=== PATIENT | female | born 1990 | race African-American/Black ===

== ENCOUNTER 2018-03-08 18:42 | Emergency (ER) | payer BC ==
[2018-03-08 20:26] VITALS: BP 136/83
--- NOTE | 2018-03-08 21:33 | EDM.PDOC ---
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 Stated Complaint: PT 8WKS AND BLEEDING Time Seen by Provider: 03/08/18 21:30 Source of Information: Reports: Patient History Limitations: Reports: No Limitations - History of Present Illness INITIAL COMMENTS - FREE TEXT/NARRATIVE: HISTORY AND PHYSICAL: []27-year-old female presenting with mild vaginal bleeding today She has used about 4 mini pads History of Present Illness: []She has had a miscarriage in the past Her guess is that she is about 8 weeks SHe is experiencing some cramping that comes and goes pain level up to 5/10 She does see Yareli Rosas nurse cannoneer Review of Systems: As per history of present illness and below otherwise all systems reviewed and negative. Past medical history: As per history of present illness and as reviewed below otherwise noncontributory. Surgical history: As per history of present illness and as reviewed below otherwise noncontributory. Social history: No reported history of drug or alcohol abuse. Family history: As per history of present illness and as reviewed below otherwise noncontributory. Physical exam: Alert and oriented female answering questions appropriately in full sentences without any shortness of breath HEENT: Atraumatic, normocehpalic, pupils reactive, negative for conjunctival pallor or scleral icterus, mucous membranes moist, throat clear, neck supple, nontender, trachea midline. Lungs: Clear to auscultation, breath sounds equal bilaterally, chest non tender. Heart: S1S2, regular, negative for clicks, rubs, or JVD. Abdomen: Soft, nondistended, nontender. Negative for masses or hepatossplenmegaly. Negative for costovertebral tenderness. Pelvis: Deferred Genitourinary: Deferred. Rectal: Deferred Extremities: Atraumatic, negative for cords or calf pain. Neurovascular unremarkable. Neuro: Awake, alert, oriented. Cranial nerves II through XII unremarkable. Cerebellum unremarkable. Motor and sensory unremarkable throughout. Exam nonfocal. Discussed results with patient Diagnostics: []Beta hCG UA Therapeutics: [] Impression: []Bleeding and first trimester Plan: []Contact Yareli Rosas tomorrow morning SHe will need to repeat the lab work that was done tonight Return to emergency room Definitive disposition and diagnosis as appropriate pending reevaluation and review of above. Onset: Today, Sudden Duration: Hour(s): Location: Reports: Pelvis Severity: Mild Improves with: Reports: None Worsens with: Reports: None L abd Pain Score (Numeric/FACES): 6 - Related Data Allergies Allergy/AdvReac Type Severity Reaction Status Date / Time No Known Allergies Allergy Verified 03/08/18 20:26 Home Meds: Home Meds . 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: Musculoskeletal History: Reports: None Neurological History: Reports: None Psychiatric History: Reports: None Endocrine/Metabolic History: Reports: Obesity/BMI 30+ Hematologic History: Reports: None Immunologic History: Reports: None Oncologic (Cancer) History: Reports: None Dermatologic History: Reports: None - Infectious Disease History Infectious Disease History: Reports: Herpes Other Infectious Disease History: Herpes - Past Surgical History Female Surgical History: Reports: Section Endocrine Surgical History: Reports: None Dermatological Surgical History: Reports: None Social & Family History - Family History HEENT: Reports: None - Tobacco Use Smoking Status *Q: Never Smoker Second Hand Smoke Exposure: No - Caffeine Use Caffeine Use: Reports: None - Recreational Drug Use Recreational Drug Use: No ED ROS GENERAL - Review of Systems Review Of Systems: ROS reveals no pertinent complaints other than HPI. ED EXAM - Physical Exam Exam: See Below (see dictation) Course - Vital Signs Last Recorded V/S: Last Vital Signs Temp 37.1 C 03/08/18 20:23 Pulse 66 03/08/18 20:23 Resp 12 03/08/18 20:23 BP 136/83 03/08/18 20:23 Pulse Ox 100 03/08/18 20:23 - Orders/Labs/Meds Orders: Active Orders 24 hr Category Date Time Status HCG QUANTITATIVE,SERUM [CHEM] Stat Lab 03/08/18 21:45 Received UA W/MICROSCOPIC [URIN] Stat Lab 03/08/18 21:49 Received Departure - Departure Time of Disposition: 22:05 Disposition: Home, Self-Care 01 Condition: Good Clinical Impression: Vaginal bleeding affecting early - Discharge Information Referrals: PCP,None [Primary Care Provider] - Forms: ED Department Discharge Additional Instructions: The following information is given to patients seen in the emergency department who are being discharged to home. This information is to outline your options for follow-up care. We provide all patients seen in our emergency department with a follow-up referral. The need for follow-up, as well as the timing and circumstances, are variable depending upon the specifics of your emergency department visit. If you don't have a primary care physician on staff, we will provide you with a referral. We always advise you to contact your personal physician following an emergency department visit to inform them of the circumstance of the visit and for follow-up with them and/or the need for any referrals to a consulting specialist. The emergency department will also refer you to a specialist when appropriate. This referral assures that you have the opportunity for followup care with a specialist. All of these measure are taken in an effort to provide you with optimal care, which includes your followup. Under all circumstances we always encourage you to contact your private physician who remains a resource for coordinating your care. When calling for followup care, please make the office aware that this follow-up is from your recent emergency room visit. If for any reason you are refused follow-up, please contact the [facility] emergency department at and asked to speak to the emergency department charge nurse. SHe will need to see your provider Yareli Rosas tomorrow for repeat laboratory values Return to the emergency room as discussed and directed - My Orders Last 24 Hours: My Active Orders 03/08/18 21:45 HCG QUANTITATIVE,SERUM [CHEM] Stat 03/08/18 21:49 UA W/MICROSCOPIC [URIN] Stat - Assessment/Plan Last 24 Hours: My Active Orders 03/08/18 21:45 HCG QUANTITATIVE,SERUM [CHEM] Stat 03/08/18 21:49 UA W/MICROSCOPIC [URIN] Stat
== END 2018-03-08 22:41 | disposition home or self-care (01) ==
LOC: MW.ED 18:42
DX: O20.9 Hemorrhage in early pregnancy, unspecified (principal); Z3A.08 8 weeks gestation of pregnancy
CPT/HCPCS: 36415; 81001; 84702; 99284

== ENCOUNTER 2018-03-09 21:28 | Emergency (ER) | payer BC ==
[2018-03-09] MEDS ORDERED: Morphine 4 MG/ML Syringe IVPUSH ONE (21:36)
[2018-03-09] MEDS ORDERED: Sodium Chloride 0.9% 10 ML Syringe FLUSH PRN (21:36)
[2018-03-09] MEDS ORDERED: Ondansetron 4 MG/2 ML SDV IVPUSH ONE (21:36)
[2018-03-09] MEDS ORDERED: Sodium Chloride 0.9% 2.5 ML Syringe FLUSH PRN (21:36)
--- NOTE | 2018-03-09 21:36 | EDM.PDOC ---
ED HPI GENERAL MEDICAL PROBLEM - General Source of Information: Reports: Patient History Limitations: Reports: No Limitations - History of Present Illness Onset: Gradual Duration: Day(s): Location: Reports: Abdomen Quality: Reports: Stabbing Severity: Severe Improves with: Reports: None Worsens with: Reports: None lower abdominal/pelvic Pain Score (Numeric/FACES): 10 - General Stated Complaint: PT HAS STOMACH PAINS AND 8 WKS Time Seen by Provider: 03/09/18 21:32 - History of Present Illness INITIAL COMMENTS - FREE TEXT/NARRATIVE: HISTORY AND PHYSICAL: []27-year-old female presenting with increased abdominal cramping and vaginal bleeding History of Present Illness: []She thinks that she is about 8 weeks Patient was seen in the emergency room last night Patient states the pain started about 3 hours ago She was unable to get into the clinic when she called today as instructed Pain is very low in the pelvis Review of Systems: As per history of present illness and below otherwise all systems reviewed and negative. Past medical history: As per history of present illness and as reviewed below otherwise noncontributory. Surgical history: As per history of present illness and as reviewed below otherwise noncontributory. Social history: No reported history of drug or alcohol abuse. Family history: As per history of present illness and as reviewed below otherwise noncontributory. Physical exam: HEENT: Atraumatic, normocehpalic, pupils reactive, negative for conjunctival pallor or scleral icterus, mucous membranes moist, throat clear, neck supple, nontender, trachea midline. Lungs: Clear to auscultation, breath sounds equal bilaterally, chest non tender. Heart: S1S2, regular, negative for clicks, rubs, or JVD. Abdomen: Soft, nondistended, nontender. Negative for masses or hepatossplenmegaly. Negative for costovertebral tenderness. Pelvis: Stable nontender. Genitourinary: Deferred. Rectal: Deferred Extremities: Atraumatic, negative for cords or calf pain. Neurovascular unremarkable. Neuro: Awake, alert, oriented. Cranial nerves II through XII unremarkable. Cerebellum unremarkable. Motor and sensory unremarkable throughout. Exam nonfocal. Diagnostics: []First trimester initial ultrasound Beta hCG Therapeutics: [] Impression: [] Plan: [] Definitive disposition and diagnosis as appropriate pending reevaluation and review of above. (Anai Cochran) Patient's quantitative beta is noted to have dropped again from yesterday pelvic ultrasound demonstrates a well-circumscribed anechoic structure seen in the vaginal fornix by history and other evidence this does appear to most likely represent a gestational sac there was no definite pole or yolk sac identified the endometrial complex is poorly defined and heterogeneous I discussed these findings with patient and the likelihood of this representing an incomplete and the need for close follow-up patient understands and agrees she was given option for inpatient admission and WASTEWATER ENGINEER consultation and she declines she has seen Yareli Valdez in the past for pregnancies she is to follow-up with WASTEWATER ENGINEER E and call in a.m. return as needed as discussed for worsening bleeding or pain as discussed. Impression is #1 first trimester vaginal bleeding #2 inevitable (Braeden Blount) - Related Data Allergies Allergy/AdvReac Type Severity Reaction Status Date / Time No Known Allergies Allergy Verified 03/09/18 21:32 Home Meds: Home Meds . 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: Musculoskeletal History: Reports: None Neurological History: Reports: None Psychiatric History: Reports: None Endocrine/Metabolic History: Reports: Obesity/BMI 30+ Hematologic History: Reports: None Immunologic History: Reports: None Oncologic (Cancer) History: Reports: None Dermatologic History: Reports: None - Infectious Disease History Infectious Disease History: Reports: Herpes Other Infectious Disease History: Herpes - Past Surgical History Female Surgical History: Reports: Section Endocrine Surgical History: Reports: None Dermatological Surgical History: Reports: None Social & Family History - Family History HEENT: Reports: None - Tobacco Use Smoking Status *Q: Never Smoker Second Hand Smoke Exposure: No - Caffeine Use Caffeine Use: Reports: None - Recreational Drug Use Recreational Drug Use: No ED ROS GENERAL - Review of Systems Review Of Systems: ROS reveals no pertinent complaints other than HPI. ED EXAM - Physical Exam Exam: See Below (See dictation) - Vital Signs Last Recorded V/S: Last Vital Signs Temp 35.9 C 03/09/18 21:32 Pulse 67 03/09/18 21:32 Resp 22 H 03/09/18 21:32 BP 133/91 H 03/09/18 21:32 Pulse Ox 100 03/09/18 21:32 - Orders/Labs/Meds Orders: Active Orders 24 hr Category Date Time Status OB 1st Tri Sgl 1st Gest [US] Stat Exams 03/09/18 21:31 Taken CULTURE URINE [RM] Stat Lab 03/09/18 21:39 Ordered UA W/MICROSCOPIC [URIN] Stat Lab 03/09/18 21:39 Ordered Sodium Chloride 0.9% [Saline Flush] Med 03/09/18 21:36 Active 10 ml FLUSH ASDIRECTED PRN Sodium Chloride 0.9% [Saline Flush] Med 03/09/18 21:36 Active 2.5 ml FLUSH ASDIRECTED PRN Saline Lock Insert [OM.PC] Stat Oth 03/09/18 21:36 Ordered Medication Orders Sodium Chloride (Saline Flush) 10 ml FLUSH ASDIRECTED PRN PRN Reason: Keep Vein Open Last Admin: 03/09/18 22:23 Dose: 10 ml Sodium Chloride (Saline Flush) 2.5 ml FLUSH ASDIRECTED PRN PRN Reason: Keep Vein Open Last Admin: 03/09/18 22:23 Dose: 2.5 ml Labs: Laboratory Tests 03/09/18 03/09/18 03/09/18 Range/Units 20:21 22:21 22:25 WBC 8.56 (4.0-11.0) K/uL RBC 4.77 (4.30-5.90) M/uL Hgb 13.8 (12.0-16.0) g/dL Hct 40.3 (36.0-46.0) % MCV 84.5 (80.0-98.0) fL MCH 28.9 (27.0-32.0) pg MCHC 34.2 (31.0-37.0) g/dL RDW Std Deviation 45.1 (28.0-62.0) fl RDW Coeff of Rhona 15 (11.0-15.0) % Plt Count 229 (150-400) K/uL MPV 10.50 (7.40-12.00) fL Neut % (Auto) 66.6 (48.0-80.0) % Lymph % (Auto) 25.4 (16.0-40.0) % [place] % (Auto) 6.0 (0.0-15.0) % Eos % (Auto) 1.1 (0.0-7.0) % Baso % (Auto) 0.9 (0.0-1.5) % Neut # (Auto) 5.7 (1.4-5.7) K/uL Lymph # (Auto) 2.2 (0.6-2.4) K/uL [place] # (Auto) 0.5 (0.0-0.8) K/uL Eos # (Auto) 0.1 (0.0-0.7) K/uL Baso # (Auto) 0.1 (0.0-0.1) K/uL Nucleated RBC % 0.0 /100WBC Nucleated RBCs # 0 K/uL Sodium 140 (136-145) mmol/L Potassium 3.3 L (3.5-5.1) mmol/L Chloride 103 (98-107) mmol/L Carbon Dioxide 25.4 (21.0-32.0) mmol/L BUN 14 (7.0-18.0) mg/dL Creatinine 0.7 (0.6-1.0) mg/dL Est Cr Clr Drug Dosing 90.29 mL/min Estimated GFR (MDRD) > 60.0 ml/min Glucose 124 H (74-106) mg/dL Calcium 9.1 (8.5-10.1) mg/dL Total Bilirubin 0.2 (0.2-1.0) mg/dL AST 17 (15-37) IU/L ALT 29 (14-63) IU/L Alkaline Phosphatase 71 (46-116) U/L Total Protein 7.8 (6.4-8.2) g/dL Albumin 3.6 (3.4-5.0) g/dL Globulin 4.2 H (2.0-3.5) g/dL Albumin/Globulin Ratio 0.9 L (1.3-2.8) HCG, Quant 7079.0 mIU/mL Meds: Medications Generic Name Dose Route Start Last Admin Trade Name Freq PRN Reason Stop Dose Admin Sodium Chloride 10 ml 03/09/18 21:36 03/09/18 22:23 Saline Flush FLUSH 10 ml ASDIRECTED PRN Administration Keep Vein Open Sodium Chloride 2.5 ml 03/09/18 21:36 03/09/18 22:23 Saline Flush FLUSH 2.5 ml ASDIRECTED PRN Administration Keep Vein Open Discontinued Medications Generic Name Dose Route Start Last Admin Trade Name Freq PRN Reason Stop Dose Admin Morphine Sulfate 2 mg 03/09/18 21:36 03/09/18 22:22 Morphine IVPUSH 03/09/18 21:37 2 mg ONETIME ONE Administration Ondansetron HCl 4 mg 03/09/18 21:36 03/09/18 22:22 Zofran IVPUSH 03/09/18 21:37 4 mg ONETIME ONE Administration Departure - Departure Time of Disposition: 21:58 Condition: Good - Departure Disposition: Still A Patient 30 Clinical Impression: Threatened , Vaginal bleeding affecting early - Discharge Information Instructions: Threatened Miscarriage
[2018-03-09 22:56] LABS: CHLORIDE,CL 103 mmol/L (98-107); SODIUM,NA 140 mmol/L (136-145)
[2018-03-10 03:32] VITALS: BP 91/69
--- NOTE | 2018-03-10 13:16 | US ---
EXAM DATE: 03/09/18 PATIENT'S AGE: 27 Patient: SPRING DOWELL Facility: [place], [place] Site . Site : 1990 Study: US OB Pelvis [id number]/[id number] 10:22:02 PM Ordering Physician: Doctor Ernandez Final Report: INDICATION: Vaginal bleeding TECHNIQUE: Ultrasound OB pelvis transabdominal and transvaginal. Real time prajapati scale imaging of the pelvis was performed. COMPARISON: None FINDINGS: Gestational Sac: There is a well-circumscribed anechoic structure seen in the vaginal fornix which may represent the gestational sac. Fetus: No definite pole or yolk sac identified. The endometrial complex is poorly defined and heterogeneous in appearance. Pelvis: The visualized cervix is closed. The visualized myometrium appears normal. The ovaries are of normal size. No significant ascites noted. IMPRESSION: 1. There is a well-circumscribed cystic structure seen in the vaginal fornix which may represent the gestational sac or blighted ovum with impending . 2. Follow-up beta HCG and ultrasound is recommended to exclude any retained products of conception. Dictated by Vance Leon MD @ 03/09/2018 10:30:02 PM Dictated by: Vance Leon MD @ 03/09/2018 22:30:20 (Electronic Signature) Report Signed by Proxy. LESTER
== END 2018-03-10 01:20 | disposition home or self-care (01) ==
LOC: MW.ED 21:28
DX: O20.0 Threatened abortion (principal); Z3A.08 8 weeks gestation of pregnancy
CPT/HCPCS: 36415; 76801; 80053; 84702; 85025; 96374; 96375; 99284; J2270; J2405

== ENCOUNTER 2018-07-21 20:01 | Emergency (ER) | payer BC ==
--- NOTE | 2018-07-21 20:19 | EDM.PDOC ---
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 She states she was seen yesterday at [facility] and was told that this could be normal in . She states the bleeding is heavier today and decided to come into the emergency room. He denies any fever, chills, chest pain , shortness of breath or cough. Denies any nausea, vomiting, diarrhea or constipation. Review of systems: As per history of present illness and below otherwise all systems reviewed and negative. Past medical history: As per history of present illness and as reviewed below otherwise noncontributory. Surgical history: As per history of present illness and as reviewed below otherwise noncontributory. Social history: No reported history of drug or alcohol abuse. Family history: As per history of present illness and as reviewed below otherwise noncontributory. Physical exam: General: HEENT: Atraumatic, normocephalic, pupils equal and reactive bilaterally, negative for conjunctival pallor or scleral icterus, mucous membranes moist, throat clear, neck supple, nontender, trachea midline. No drooling or trismus noted. No meningeal signs Lungs: Clear to auscultation, breath sounds equal bilaterally, chest nontender. Heart: S1S2, regular rate and rhythm without overt murmur Abdomen: Soft, nondistended, nontender. Negative for masses or hepatosplenomegaly. Negative for costovertebral tenderness. Pelvis: Stable nontender. Genitourinary: Deferred. Rectal: Deferred. Skin: Intact, warm, dry. No lesions or rashes noted. Extremities: Atraumatic, negative for cords or calf pain. Neurovascular unremarkable. Neuro: Awake, alert, oriented. Cranial nerves II through XII unremarkable. Cerebellum unremarkable. Motor and sensory unremarkable throughout. Exam nonfocal. Notes: Previous records show she is A positive. Unable to view any previous confirmed IUP. She states that she have lab work done at [facility], this information is unavailable to me at this time. He is agreeable to ultrasound and repeat labs. Diagnostics: CBC, CMP, UA, HCGU Therapeutics: Tylenol Prescription: None Impression: Threatened Miscarriage Plan: 1. Pelvic Rest (No sex, tampons, etc...) 2. Tylenol as needed for pain management. 3. Please have your quantitative hCG lab repeated on 07/23/2018 through your OB/ CLAIM BENEFIT SPECIALIST. 4. Call [facility] tomorrow to inform them of your ER visit and you need to make a follow up appointment. Return to the ED as needed as discussed. Definitive disposition and diagnosis as appropriate pending reevaluation and review of above. (Nghia Burton) This is Dr. Hopson dictating an addendum note as I have assumed care of this case at 10 PM. There is some delays in getting the patient's ultrasound but all of her labs and ultrasound have been reviewed by me and these testing results have also been discussed with Dr. Thomas the patient's ultrasound does delineate an intrauterine but there is no cardiac activity and is sitting in the lower uterine segment and this is suspicious for inevitable miscarriage. I've advised the patient on strict pelvic rest and need to contact the clinic tomorrow morning for follow-up with repeat quantitative hCG and ultrasound. I performed a pelvic exam and there is a small amount of blood in the vaginal vault and a small clot at the os which I removed easily and there is no tissue. The os is nulliparous and closed. Please note that patient is telling nursing that she only went over to [facility] yesterday because she could not get in to our clinic and she does have an appointment next week with Yareli Rosas. I told her that she can call our clinic tomorrow and see if she can be seen sooner because she does need to be seen sooner than 1 week otherwise [facility] is aware of her and can see her in the next 1-2 days. She states understanding. Impression: Threatened miscarriage/ demise versus early IUP (Kaye Hopson) - Related Data Allergies Allergy/AdvReac Type Severity Reaction Status Date / Time No Known Allergies Allergy Verified 07/21/18 20:24 Home Meds: Home Meds . 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: Musculoskeletal History: Reports: None Neurological History: Reports: None Psychiatric History: Reports: None Endocrine/Metabolic History: Reports: Obesity/BMI 30+ Hematologic History: Reports: None Immunologic History: Reports: None Oncologic (Cancer) History: Reports: None Dermatologic History: Reports: None - Infectious Disease History Infectious Disease History: Reports: Herpes Other Infectious Disease History: Herpes - Past Surgical History Female Surgical History: Reports: Section Endocrine Surgical History: Reports: None Dermatological Surgical History: Reports: None <Nghia Burton E - Last Filed: 07/21/18 21:38> Social & Family History - Family History Family Medical History: Noncontributory HEENT: Reports: None - Caffeine Use Caffeine Use: Reports: None <Nghia Burton E - Last Filed: 07/21/18 21:38> ED ROS GENERAL - Review of Systems Review Of Systems: ROS reveals no pertinent complaints other than HPI. <Nghia Burton E - Last Filed: 07/21/18 21:38> - Review of Systems Review Of Systems: ROS reveals no pertinent complaints other than HPI. <Kaye Hopson - Last Filed: 07/21/18 23:23> ED EXAM - Physical Exam Exam: See Below (See dictation) <Nghia Burton E - Last Filed: 07/21/18 21:38> - Vital Signs Last Recorded V/S: Last Vital Signs Temp 36.6 C 07/21/18 20:22 Pulse 77 07/21/18 20:22 Resp 16 07/21/18 20:22 BP 136/76 07/21/18 20:22 Pulse Ox 99 07/21/18 20:22 - Orders/Labs/Meds Orders: Active Orders 24 hr Category Date Time Status OB Transvaginal [US] Stat Exams 07/21/18 20:33 Taken Labs: Laboratory Tests 07/21/18 07/21/18 07/21/18 Range/Units 20:30 20:30 20:30 WBC 7.34 (4.0-11.0) K/uL RBC 4.57 (4.30-5.90) M/uL Hgb 12.9 (12.0-16.0) g/dL Hct 38.7 (36.0-46.0) % MCV 84.7 (80.0-98.0) fL MCH 28.2 (27.0-32.0) pg MCHC 33.3 (31.0-37.0) g/dL RDW Std Deviation 44.9 (28.0-62.0) fl RDW Coeff of Rhona 15 (11.0-15.0) % Plt Count 236 (150-400) K/uL MPV 9.80 (7.40-12.00) fL Neut % (Auto) 49.5 (48.0-80.0) % Lymph % (Auto) 40.1 H (16.0-40.0) % Maries % (Auto) 7.2 (0.0-15.0) % Eos % (Auto) 2.2 (0.0-7.0) % Baso % (Auto) 1.0 (0.0-1.5) % Neut # (Auto) 3.6 (1.4-5.7) K/uL Lymph # (Auto) 2.9 H (0.6-2.4) K/uL Maries # (Auto) 0.5 (0.0-0.8) K/uL Eos # (Auto) 0.2 (0.0-0.7) K/uL Baso # (Auto) 0.1 (0.0-0.1) K/uL Nucleated RBC % 0.0 /100WBC Nucleated RBCs # 0 K/uL Sodium 137 (136-145) mmol/L Potassium 4.2 (3.5-5.1) mmol/L Chloride 103 (98-107) mmol/L Carbon Dioxide 27.6 (21.0-32.0) mmol/L BUN 10 (7.0-18.0) mg/dL Creatinine 0.7 (0.6-1.0) mg/dL Est Cr Clr Drug Dosing 89.48 mL/min Estimated GFR (MDRD) > 60.0 ml/min Glucose 127 H (74-106) mg/dL Calcium 9.2 (8.5-10.1) mg/dL Total Bilirubin 0.2 (0.2-1.0) mg/dL AST 11 L (15-37) IU/L ALT 25 (14-63) IU/L Alkaline Phosphatase 64 (46-116) U/L Total Protein 7.6 (6.4-8.2) g/dL Albumin 3.4 (3.4-5.0) g/dL Globulin 4.2 H (2.0-3.5) g/dL Albumin/Globulin Ratio 0.8 L (1.3-2.8) HCG, Quant 6012.0 mIU/mL Urine Color Urine Appearance Urine pH (5.0-8.0) Ur Specific [place] (1.001-1.035) Urine Protein (NEGATIVE) mg/dL Urine Glucose (UA) (NEGATIVE) mg/dL Urine Ketones (NEGATIVE) mg/dL Urine Occult Blood (NEGATIVE) Urine Nitrite (NEGATIVE) Urine Bilirubin (NEGATIVE) Urine Urobilinogen (<2.0) EU/dL Ur Leukocyte Esterase (NEGATIVE) Urine RBC (0-2/HPF) Urine WBC (0-5/HPF) Ur Epithelial Cells (NONE-FEW) Urine Bacteria (NEGATIVE) 07/21/18 Range/Units 20:55 WBC (4.0-11.0) K/uL RBC (4.30-5.90) M/uL Hgb (12.0-16.0) g/dL Hct (36.0-46.0) % MCV (80.0-98.0) fL MCH (27.0-32.0) pg MCHC (31.0-37.0) g/dL RDW Std Deviation (28.0-62.0) fl RDW Coeff of Rhona (11.0-15.0) % Plt Count (150-400) K/uL MPV (7.40-12.00) fL Neut % (Auto) (48.0-80.0) % Lymph % (Auto) (16.0-40.0) % Maries % (Auto) (0.0-15.0) % Eos % (Auto) (0.0-7.0) % Baso % (Auto) (0.0-1.5) % Neut # (Auto) (1.4-5.7) K/uL Lymph # (Auto) (0.6-2.4) K/uL Maries # (Auto) (0.0-0.8) K/uL Eos # (Auto) (0.0-0.7) K/uL Baso # (Auto) (0.0-0.1) K/uL Nucleated RBC % /100WBC Nucleated RBCs # K/uL Sodium (136-145) mmol/L Potassium (3.5-5.1) mmol/L Chloride (98-107) mmol/L Carbon Dioxide (21.0-32.0) mmol/L BUN (7.0-18.0) mg/dL Creatinine (0.6-1.0) mg/dL Est Cr Clr Drug Dosing mL/min Estimated GFR (MDRD) ml/min Glucose (74-106) mg/dL Calcium (8.5-10.1) mg/dL Total Bilirubin (0.2-1.0) mg/dL AST (15-37) IU/L ALT (14-63) IU/L Alkaline Phosphatase (46-116) U/L Total Protein (6.4-8.2) g/dL Albumin (3.4-5.0) g/dL Globulin (2.0-3.5) g/dL Albumin/Globulin Ratio (1.3-2.8) HCG, Quant mIU/mL Urine Color YELLOW Urine Appearance SLT CLOUDY Urine pH 6.0 (5.0-8.0) Ur Specific [place] 1.015 (1.001-1.035) Urine Protein NEGATIVE (NEGATIVE) mg/dL Urine Glucose (UA) NEGATIVE (NEGATIVE) mg/dL Urine Ketones NEGATIVE (NEGATIVE) mg/dL Urine Occult Blood LARGE H (NEGATIVE) Urine Nitrite NEGATIVE (NEGATIVE) Urine Bilirubin NEGATIVE (NEGATIVE) Urine Urobilinogen 0.2 (<2.0) EU/dL Ur Leukocyte Esterase NEGATIVE (NEGATIVE) Urine RBC 90-100 (0-2/HPF) Urine WBC 0-2 (0-5/HPF) Ur Epithelial Cells RARE (NONE-FEW) Urine Bacteria RARE (NEGATIVE) Meds: Medications Discontinued Medications Generic Name Dose Route Start Last Admin Trade Name Freq PRN Reason Stop Dose Admin Acetaminophen 1,000 mg 07/21/18 21:12 07/21/18 21:31 Tylenol Extra Strength PO 07/21/18 21:13 1,000 mg ONETIME ONE Administration Departure <Nghia Burton - Last Filed: 07/21/18 21:38> - Departure Time of Disposition: 23:23 Condition: Good <Kaye Hopson - Last Filed: 07/21/18 23:23> - Departure Disposition: Home, Self-Care 01 Clinical Impression: Threatened - Discharge Information Instructions: Threatened Miscarriage, [id number] Referrals: PCP,None [Primary Care Provider] - Forms: ED Department Discharge Additional Instructions: The following information is given to patients seen in the emergency department who are being discharged to home. This information is to outline your options for follow-up care. We provide all patients seen in our emergency department with a follow-up referral. The need for follow-up, as well as the timing and circumstances, are variable depending upon the specifics of your emergency department visit. If you don't have a primary care physician on staff, we will provide you with a referral. We always advise you to contact your personal physician following an emergency department visit to inform them of the circumstance of the visit and for follow-up with them and/or the need for any referrals to a consulting specialist. The emergency department will also refer you to a specialist when appropriate. This referral assures that you have the opportunity for follow-up care with a specialist. All of these measure are taken in an effort to provide you with optimal care, which includes your follow-up. Under all circumstances we always encourage you to contact your private physician who remains a resource for coordinating your care. When calling for follow-up care, please make the office aware that this follow-up is from your recent emergency room visit. If for any reason you are refused follow-up, please contact the [facility] Emergency Department at and asked to speak to the emergency department charge nurse. [facility] [address] [place] [address] [facility] Primary care-Women's [facility] [address] [facility] [place] [address] [place] [address] 1. Pelvic Rest (No sex, tampons, etc...) until cleared by your OBGYN 2. Tylenol as needed for pain management. 3 Call [facility] tomorrow to inform them of your ER visit and you need to make a follow up appointment in the next 1-2 days. He may also try to call our clinic if you choose to follow-up there and see if they can move up your appointment from next week. Advised that you should be seen within the next 1-2 days because of the findings on the ultrasound and hormone level.. Return to the ED as needed as discussed.
[2018-07-21 20:59] LABS: CHLORIDE,CL 103 mmol/L (98-107); SODIUM,NA 137 mmol/L (136-145)
[2018-07-21] MEDS ORDERED: Acetaminophen 500 MG Tab PO ONE (21:12)
[2018-07-21 23:38] VITALS: BP 110/50
--- NOTE | 2018-07-22 10:44 | US ---
EXAM DATE: 07/21/18 PATIENT'S AGE: 28 Patient: SPRING DOWELL Facility: [place], [place] Site . Site : 1990 Study: US OB Pelvis [id number]/11/2018 10:39:03 PM Ordering Physician: Doctor Ernandez Final Report: HISTORY: Spotting and cramping for 2 days. COMPARISON: None available of this gestation. TECHNIQUE: Transvaginal ultrasound examination of the early was performed. Initial examination was performed with transabdominal technique. FINDINGS: A single intrauterine gestational sac is seen with a pole. The gestational sac is flattened and irregular, and located low in the uterine cavity. The crown-rump length measurement of 0.4 cm gives an estimated gestational age of 6 weeks 1 day with an estimated date of delivery of 03/17/2019. This correlates well with the LMP of 05/30/2018 which gives a clinical age of 7 weeks 3 days. There is no cardiac activity at this time. The differential diagnosis includes demise with impending spontaneous versus early intrauterine gestation. Follow-up ultrasound is suggested. There is a tiny amount of free fluid in the cul-de-sac, nonspecific. There is a complex cyst in the left ovary with thick noyola, measuring up to 1.7 centimeters in diameter, possibly a corpus luteum cyst of . The right ovary cannot be identified. IMPRESSION: SINGLE INTRAUTERINE GESTATIONAL SAC IDENTIFIED LOW IN THE UTERINE CAVITY, WITH IRREGULAR SHAPE. A POLE IS IDENTIFIED WITHIN THE GESTATIONAL SAC, BUT NO CARDIAC ACTIVITY CAN BE IDENTIFIED. ESTIMATED GESTATIONAL AGE BY ULTRASOUND IS 6 WEEKS 1 DAY DIFFERENTIAL DIAGNOSIS INCLUDES DEMISE WITH IMPENDING SPONTANEOUS VERSUS EARLY INTRAUTERINE GESTATION. RECOMMEND FOLLOW-UP ULTRASOUND. Dictated by David Lemus MD @ Jul 21 2018 10:49PM (Electronic Signature) Report Signed by Proxy. LESTER
== END 2018-07-21 23:40 | disposition home or self-care (01) ==
LOC: MW.ED 20:01
DX: O20.0 Threatened abortion (principal); Z3A.01 Less than 8 weeks gestation of pregnancy
CPT/HCPCS: 36415; 76817; 80053; 81001; 84702; 85025; 99285; A9270

== ENCOUNTER 2019-01-12 09:18 | Emergency (ER) | payer BC ==
[2019-01-12] MEDS ORDERED: Sodium Chloride 0.9% 10 ML Syringe FLUSH PRN (09:40)
[2019-01-12] MEDS ORDERED: Sodium Chloride 0.9% 1,000 ML IV ONE ×2 (09:40→13:00)
[2019-01-12] MEDS ORDERED: Sodium Chloride 0.9% 2.5 ML Syringe FLUSH PRN (09:40)
[2019-01-12] MEDS ORDERED: Ondansetron 4 MG/2 ML SDV IVPUSH ONE (09:40)
[2019-01-12] MEDS ORDERED: Morphine 2 MG/ML Syringe IVPUSH ONE ×2 (09:40→12:02)
--- NOTE | 2019-01-12 09:43 | EDM.PDOC ---
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 Gonzalez and says that last night she started having some cramping and spotting which worsened today. She says she is passing blood and she's not sure if she passed any tissue. The patient had a pelvic ultrasound done here as an outpatient on January 01 which showed an intrauterine gestational sac dating the at 7 weeks one day but there was no cardiac activity. She has had 2 serum quantitative hCGs on December 30 and for every the first being [id number] and the second being 40412 showing a fall. She tried to get into the clinic and was unable so came here for care. She is feeling nauseated but has not had any vomiting. She says the discomfort is in her lower pelvis area and it is cramping in nature. She's had no urinary symptoms. Review of systems: As per history of present illness and below otherwise all systems reviewed and negative. Past medical history: As per history of present illness and as reviewed below otherwise noncontributory. Surgical history: As per history of present illness and as reviewed below otherwise noncontributory. Social history: No reported history of drug or alcohol abuse. Family history: As per history of present illness and as reviewed below otherwise noncontributory. Physical exam: General: Well-developed well-nourished female who is nontoxic and vital signs are noted by me. She is uncomfortable in the room but she is able to lay flat and is able to be redirected HEENT: Atraumatic, normocephalic, negative for conjunctival pallor or scleral icterus, mucous membranes moist, throat clear, neck supple, nontender, trachea midline. Lungs: Clear to auscultation, breath sounds equal bilaterally, chest nontender. Heart: S1S2, regular in rhythm no overt murmurs Abdomen: Soft, nondistended, lower abdominal discomfort on palpation but no rebound or guarding Negative for masses or hepatosplenomegaly. Negative for costovertebral tenderness. Pelvis: Deferred Genitourinary: There is a large blood clot seen at the introitus and there are copious clots and blood in the vaginal vault which were expelled easily and spontaneously. There is some organized clot versus tissue seen which was collected and will be sent to the lab. The cervix is fingertip and the uterus is boggy and 7-8 weeks size but there is no adnexal tenderness. Rectal: Deferred. Extremities: Atraumatic, negative for cords or calf pain. Neurovascular unremarkable. Neuro: Awake, alert, oriented. Cranial nerves II through XII unremarkable. Cerebellum unremarkable. Motor and sensory unremarkable throughout. Exam nonfocal. Diagnostics: ABO Rh CBC CMP serum hCG UA pelvic ultrasound Therapeutics: IV, IV fluids morphine Zofran methergine Since being here the patient has used 3 pads but she is not soaking them indefinitely not bleeding as heavily as when she arrived. All testing results have been obtained but she has not given us a urine sample. I will cancel that order. I have placed a call out to Dr. Gonzalez to discuss the plan. 1306: Case was discussed with Dr. Gonzalez would like me to give one dose of Methergine 0.2 mg IM and advised the patient that she will be cramping and to follow-up with him. He tells me that this patient had an appointment with him at 1045 and opted to come to the ED instead of going to see him. I will advise her I need to follow-up and give her some medications for discomfort. Impression: Spontaneous Definitive disposition and diagnosis as appropriate pending reevaluation and review of above. Abdominal Pain Score (Numeric/FACES): 10 - Related Data Allergies Allergy/AdvReac Type Severity Reaction Status Date / Time No Known Allergies Allergy Verified 01/12/19 10:00 Home Meds: Home Meds . 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: Musculoskeletal History: Reports: None Neurological History: Reports: None Psychiatric History: Reports: None Endocrine/Metabolic History: Reports: Obesity/BMI 30+ Hematologic History: Reports: None Immunologic History: Reports: None Oncologic (Cancer) History: Reports: None Dermatologic History: Reports: None - Infectious Disease History Infectious Disease History: Reports: Herpes Other Infectious Disease History: Herpes - Past Surgical History Female Surgical History: Reports: Section Endocrine Surgical History: Reports: None Dermatological Surgical History: Reports: None Social & Family History - Family History Family Medical History: Noncontributory HEENT: Reports: None - Caffeine Use Caffeine Use: Reports: None ED ROS GENERAL - Review of Systems Review Of Systems: ROS reveals no pertinent complaints other than HPI. ED EXAM, GENERAL - Physical Exam Exam: See Below (See dictation) Course - Vital Signs Last Recorded V/S: Last Vital Signs Temp 35.7 C 01/12/19 10:00 Pulse 83 01/12/19 12:15 Resp 18 01/12/19 12:15 BP 116/71 01/12/19 12:15 Pulse Ox 99 01/12/19 12:15 - Orders/Labs/Meds Orders: Active Orders 24 hr Category Date Time Status Methylergonovine [Methergine] Med 01/12/19 13:07 Once 0.2 mg IM ONETIME ONE Sodium Chloride 0.9% [Normal Saline] 1,000 ml Med 01/12/19 13:00 Active IV .BOLUS Sodium Chloride 0.9% [Saline Flush] Med 01/12/19 09:40 Active 10 ml FLUSH ASDIRECTED PRN Sodium Chloride 0.9% [Saline Flush] Med 01/12/19 09:40 Active 2.5 ml FLUSH ASDIRECTED PRN Saline Lock Insert [OM.PC] Stat Oth 01/12/19 09:39 Ordered Medication Orders Sodium Chloride (Normal Saline) 1,000 mls @ 999 mls/hr IV .BOLUS ONE Stop: 01/12/19 14:00 Last Admin: 01/12/19 13:01 Dose: 999 mls/hr Sodium Chloride (Saline Flush) 10 ml FLUSH ASDIRECTED PRN PRN Reason: Keep Vein Open Last Admin: 01/12/19 09:57 Dose: 10 ml Sodium Chloride (Saline Flush) 2.5 ml FLUSH ASDIRECTED PRN PRN Reason: Keep Vein Open Last Admin: 01/12/19 09:57 Dose: 2.5 ml Labs: Laboratory Tests 01/12/19 01/12/19 01/12/19 Range/Units 11:10 11:10 11:10 WBC 8.30 (4.0-11.0) K/uL RBC 4.45 (4.30-5.90) M/uL Hgb 12.9 (12.0-16.0) g/dL Hct 37.1 (36.0-46.0) % MCV 83.4 (80.0-98.0) fL MCH 29.0 (27.0-32.0) pg MCHC 34.8 (31.0-37.0) g/dL RDW Std Deviation 45.6 (28.0-62.0) fl RDW Coeff of Rhona 15 (11.0-15.0) % Plt Count 198 (150-400) K/uL MPV 10.60 (7.40-12.00) fL Neut % (Auto) 80.3 H (48.0-80.0) % Lymph % (Auto) 14.8 L (16.0-40.0) % [place] % (Auto) 4.2 (0.0-15.0) % Eos % (Auto) 0.2 (0.0-7.0) % Baso % (Auto) 0.5 (0.0-1.5) % Neut # (Auto) 6.7 H (1.4-5.7) K/uL Lymph # (Auto) 1.2 (0.6-2.4) K/uL [place] # (Auto) 0.4 (0.0-0.8) K/uL Eos # (Auto) 0.0 (0.0-0.7) K/uL Baso # (Auto) 0.0 (0.0-0.1) K/uL Sodium 140 (136-145) mmol/L Potassium 3.5 (3.5-5.1) mmol/L Chloride 107 (98-107) mmol/L Carbon Dioxide 21.6 (21.0-32.0) mmol/L BUN 9 (7.0-18.0) mg/dL Creatinine 0.5 L (0.6-1.0) mg/dL Est Cr Clr Drug Dosing 131.30 mL/min Estimated GFR (MDRD) > 60.0 ml/min Glucose 101 (74-106) mg/dL Calcium 8.2 L (8.5-10.1) mg/dL Total Bilirubin 0.3 (0.2-1.0) mg/dL AST 16 (15-37) IU/L ALT 26 (14-63) IU/L Alkaline Phosphatase 66 (46-116) U/L Total Protein 6.7 (6.4-8.2) g/dL Albumin 3.1 L (3.4-5.0) g/dL Globulin 3.6 (2.6-4.0) g/dL Albumin/Globulin Ratio 0.9 (0.9-1.6) HCG, Quant 8205.0 mIU/mL Blood Type A POSITIVE Meds: Medications Generic Name Dose Route Start Last Admin Trade Name Zoila PRN Reason Stop Dose Admin Sodium Chloride 1,000 mls @ 999 mls/hr 01/12/19 13:00 01/12/19 13:01 Normal Saline IV 01/12/19 14:00 999 mls/hr .BOLUS ONE Administration Sodium Chloride 10 ml 01/12/19 09:40 01/12/19 09:57 Saline Flush FLUSH 10 ml ASDIRECTED PRN Administration Keep Vein Open Sodium Chloride 2.5 ml 01/12/19 09:40 01/12/19 09:57 Saline Flush FLUSH 2.5 ml ASDIRECTED PRN Administration Keep Vein Open Discontinued Medications Generic Name Dose Route Start Last Admin Trade Name Zoila PRN Reason Stop Dose Admin Sodium Chloride 1,000 mls @ 999 mls/hr 01/12/19 09:40 01/12/19 09:57 Normal Saline IV 01/12/19 10:40 999 mls/hr STAT ONE Administration Morphine Sulfate 4 mg 01/12/19 09:40 01/12/19 09:56 Morphine IVPUSH 01/12/19 09:41 4 mg ONETIME ONE Administration Morphine Sulfate 4 mg 01/12/19 12:02 01/12/19 12:07 Morphine IVPUSH 01/12/19 12:03 4 mg ONETIME ONE Administration Ondansetron HCl 4 mg 01/12/19 09:40 01/12/19 09:56 Zofran IVPUSH 01/12/19 09:41 4 mg ONETIME ONE Administration Departure - Departure Time of Disposition: 13:08 Disposition: Home, Self-Care 01 Condition: Good Clinical Impression: Spontaneous - Discharge Information Referrals: PCP,Unknown [Primary Care Provider] - Forms: ED Department Discharge Additional Instructions: The following information is given to patients seen in the emergency department who are being discharged to home. This information is to outline your options for follow-up care. We provide all patients seen in our emergency department with a follow-up referral. The need for follow-up, as well as the timing and circumstances, are variable depending upon the specifics of your emergency department visit. If you don't have a primary care physician on staff, we will provide you with a referral. We always advise you to contact your personal physician following an emergency department visit to inform them of the circumstance of the visit and for follow-up with them and/or the need for any referrals to a consulting specialist. The emergency department will also refer you to a specialist when appropriate. This referral assures that you have the opportunity for followup care with a specialist. All of these measure are taken in an effort to provide you with optimal care, which includes your followup. Under all circumstances we always encourage you to contact your private physician who remains a resource for coordinating your care. When calling for followup care, please make the office aware that this follow-up is from your recent emergency room visit. If for any reason you are refused follow-up, please contact the [facility] emergency department at and ask to speak to the emergency department charge nurse. [facility] Primary care-Women's Health [address] [address] Please contact and schedule a follow-up appointment in the next few days with Dr. Gonzalez. You have been given medication to help expel the remainder of the blood from this and he will experience cramping and bleeding with that. Please rest and push hydration and dual movements slowly so as to avoid lightheadedness or dizziness. His medications as needed and prescribed for the discomfort. Return to ER as needed and as discussed. Nothing in vagina including tampons douching, until you're followed up by Dr. Gonzalez - My Orders Last 24 Hours: My Active Orders 01/12/19 09:39 Saline Lock Insert [OM.PC] Stat 01/12/19 09:40 Sodium Chloride 0.9% [Saline Flush] 10 ml FLUSH ASDIRECTED PRN Sodium Chloride 0.9% [Saline Flush] 2.5 ml FLUSH ASDIRECTED PRN 01/12/19 13:00 Sodium Chloride 0.9% [Normal Saline] 1,000 ml IV .BOLUS 01/12/19 13:07 Methylergonovine [Methergine] 0.2 mg IM ONETIME ONE - Assessment/Plan Last 24 Hours: My Active Orders 01/12/19 09:39 Saline Lock Insert [OM.PC] Stat 01/12/19 09:40 Sodium Chloride 0.9% [Saline Flush] 10 ml FLUSH ASDIRECTED PRN Sodium Chloride 0.9% [Saline Flush] 2.5 ml FLUSH ASDIRECTED PRN 01/12/19 13:00 Sodium Chloride 0.9% [Normal Saline] 1,000 ml IV .BOLUS 01/12/19 13:07 Methylergonovine [Methergine] 0.2 mg IM ONETIME ONE
[2019-01-12 12:12] LABS: CHLORIDE,CL 107 mmol/L (98-107); SODIUM,NA 140 mmol/L (136-145)
--- NOTE | 2019-01-12 12:44 | US ---
INDICATION: VAGINAL BLEEDING HISTORY: Vaginal bleeding. COMPARISON: Pelvic ultrasound 01/06/2019. TECHNIQUE: Endovaginal imaging of the pelvis was obtained to better evaluate the adnexa and endometrial complex. FINDINGS: There is fluid in the endometrium, within the lower uterine segment. The endometrial complex appears thickened at 18 mm. There is no intrauterine or extrauterine gestational sac. There is no extraovarian adnexal mass. Prior examination demonstrated an intrauterine gestational sac, with yolk sac, and no definite pole or cardiac activity. The findings today are compatible with a failed IUP. Neither ovary is visualized with certainty on today`s exam. IMPRESSION: 1. No intrauterine gestational sac/yolk sac on today`s examination. 2. A failed IUP is suspected. 3. There is no adnexal mass or significant free fluid in the pelvis. Dictated by Junaid Vera MD @ 01/12/2019 12:42:30 PM Dictated by: Junaid Vera MD @ 01/12/2019 12:42:35 (Electronically Signed)
[2019-01-12] MEDS ORDERED: Methylergonovine 0.2 MG/1 ML Amp IM ONE (13:07)
[2019-01-12 13:32] VITALS: BP 119/74
[2019-01-12] MEDS ORDERED: Ondansetron 4 MG Tab.DIS PO ONE (13:44)
== END 2019-01-12 15:03 | disposition home or self-care (01) ==
LOC: MW.ED 09:18
DX: O03.9 Complete or unspecified spontaneous abortion without complication (principal)
CPT/HCPCS: 36415; 76801; 80053; 84702; 85025; 86900; 86901; 96361; 96374; 96375; 96376; 99284; A9270; J2210; J2270; J2405; J7040; 88305

== ENCOUNTER 2019-01-13 12:38 | Emergency (ER) | payer BC ==
--- NOTE | 2019-01-13 12:54 | EDM.PDOC ---
ED HPI GENERAL MEDICAL PROBLEM - General Chief Complaint: Abdominal Pain Stated Complaint: ABDOMINAL PAIN Time Seen by Provider: 01/13/19 12:44 Source of Information: Reports: Patient History Limitations: Reports: No Limitations - History of Present Illness INITIAL COMMENTS - FREE TEXT/NARRATIVE: History of present illness: []Patient is 5 para 1 who had a spontaneous seen in the ER yesterday with pelvic ultrasound that showed an empty uterus without free fluid or adnexal masses. Patient was given Methergine and was evaluated by Dr. Gonzalez yesterday. This morning she states whenever she drinks water she throws up and is very nauseated. Her bleeding has diminished greatly at this time. Patient has no vomiting the ED. Review of systems: As per history of present illness and below otherwise all systems reviewed and negative. Past medical history: As per history of present illness and as reviewed below otherwise noncontributory. Surgical history: As per history of present illness and as reviewed below otherwise noncontributory. Social history: No reported history of drug or alcohol abuse. Family history: As per history of present illness and as reviewed below otherwise noncontributory. Physical exam: General: Well developed, well nourished in NAD HEENT: Atraumatic, normocephalic, pupils reactive, negative for conjunctival pallor or scleral icterus, mucous membranes moist, throat clear, neck supple, nontender, trachea midline. Lungs: Clear to auscultation, breath sounds equal bilaterally, chest nontender. Heart: S1S2, regular, negative for clicks, rubs, or JVD. Abdomen: NABS, Soft, nondistended, mild pelvic tenderness no rebound or guarding. Negative for masses or hepatosplenomegaly. Negative for costovertebral tenderness. Pelvis: Stable nontender. Genitourinary: Deferred. Rectal: Deferred. Extremities: Atraumatic, negative for cords or calf pain. Neurovascular unremarkable. Neuro: Awake, alert, oriented. Cranial nerves II through XII unremarkable. Cerebellum unremarkable. Motor and sensory unremarkable throughout. Exam nonfocal. Skin:warm and dry Diagnostics: CBC shows H&H of 08/06, vital signs are stable Therapeutics: Zofran ODT ED Course: Unremarkable Impression: Spontaneous , nausea Prescriptions: Zofran Plan: Follow-up with Dr. Gonzalez as needed. Definitive disposition and diagnosis as appropriate pending reevaluation and review of above. Lower Abdominal Pain Score (Numeric/FACES): 10 - Related Data Allergies Allergy/AdvReac Type Severity Reaction Status Date / Time No Known Allergies Allergy Verified 01/13/19 13:03 Home Meds: Home Meds Hydrocodone/Acetaminophen [[place] 5-325 Tablet] 1 each PO Q12HR PRN 01/13/19 [ History] Ondansetron [Zofran ODT] 4 mg PO Q6H PRN #12 tab.dis 01/13/19 [Rx] traMADol HCl [Tramadol HCl] 50 mg PO Q6H PRN #16 tablet 01/13/19 [Rx] Past Medical History - Past Health History Medical/Surgical History: Denies Medical/Surgical History HEENT History: Reports: None Cardiovascular History: Reports: None Respiratory History: Reports: None Gastrointestinal History: Reports: GERD Genitourinary History: Reports: None 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: Musculoskeletal History: Reports: None Neurological History: Reports: None Psychiatric History: Reports: None Endocrine/Metabolic History: Reports: Obesity/BMI 30+ Hematologic History: Reports: None Immunologic History: Reports: None Oncologic (Cancer) History: Reports: None Dermatologic History: Reports: None - Infectious Disease History Infectious Disease History: Reports: Herpes Other Infectious Disease History: Herpes - Past Surgical History Female Surgical History: Reports: Section Endocrine Surgical History: Reports: None Dermatological Surgical History: Reports: None Social & Family History - Family History Family Medical History: Noncontributory HEENT: Reports: None - Caffeine Use Caffeine Use: Reports: None ED ROS GENERAL - Review of Systems Review Of Systems: ROS reveals no pertinent complaints other than HPI. ED EXAM, RENAL/ - Physical Exam Exam: See Below (See history of present illness) Course - Vital Signs Last Recorded V/S: Last Vital Signs Temp 97.8 F 01/13/19 13:06 Pulse 88 01/13/19 13:06 Resp 20 01/13/19 13:06 BP 138/43 L 01/13/19 13:06 Pulse Ox 99 01/13/19 13:06 - Orders/Labs/Meds Labs: Laboratory Tests 01/13/19 Range/Units 13:03 WBC 9.20 (4.0-11.0) K/uL RBC 3.27 L (4.30-5.90) M/uL Hgb 9.4 L (12.0-16.0) g/dL Hct 27.2 L (36.0-46.0) % MCV 83.2 (80.0-98.0) fL MCH 28.7 (27.0-32.0) pg MCHC 34.6 (31.0-37.0) g/dL RDW Std Deviation 45.2 (28.0-62.0) fl RDW Coeff of Rhona 15 (11.0-15.0) % Plt Count 213 (150-400) K/uL MPV 10.00 (7.40-12.00) fL Neut % (Auto) 74.3 (48.0-80.0) % Lymph % (Auto) 19.0 (16.0-40.0) % [place] % (Auto) 5.7 (0.0-15.0) % Eos % (Auto) 0.3 (0.0-7.0) % Baso % (Auto) 0.7 (0.0-1.5) % Neut # (Auto) 6.8 H (1.4-5.7) K/uL Lymph # (Auto) 1.8 (0.6-2.4) K/uL [place] # (Auto) 0.5 (0.0-0.8) K/uL Eos # (Auto) 0.0 (0.0-0.7) K/uL Baso # (Auto) 0.1 (0.0-0.1) K/uL Nucleated RBC % 0.0 /100WBC Nucleated RBCs # 0 K/uL Meds: Medications Discontinued Medications Generic Name Dose Route Start Last Admin Trade Name Freq PRN Reason Stop Dose Admin Ondansetron HCl 4 mg 01/13/19 12:47 01/13/19 13:09 Zofran Odt PO 01/13/19 12:48 4 mg ONETIME ONE Administration Departure - Departure Time of Disposition: 13:12 Disposition: Home, Self-Care 01 Condition: Good Clinical Impression: Nausea, Spontaneous - Discharge Information *PRESCRIPTION DRUG MONITORING PROGRAM REVIEWED*: No *COPY OF PRESCRIPTION DRUG MONITORING REPORT IN PATIENT [place]: No Prescriptions: Ondansetron [Zofran ODT] 4 mg PO Q6H PRN #12 tab.dis PRN Reason: Nausea traMADol HCl [Tramadol HCl] 50 mg PO Q6H PRN #16 tablet PRN Reason: Pain Instructions: Nausea, Adult, Miscarriage, [id number] Referrals: PCP,None [Primary Care Provider] - Forms: ED Department Discharge Additional Instructions: The following information is given to patients seen in the emergency department who are being discharged to home. This information is to outline your options for follow-up care. We provide all patients seen in our emergency department with a follow-up referral. The need for follow-up, as well as the timing and circumstances, are variable depending upon the specifics of your emergency department visit. If you don't have a primary care physician on staff, we will provide you with a referral. We always advise you to contact your personal physician following an emergency department visit to inform them of the circumstance of the visit and for follow-up with them and/or the need for any referrals to a consulting specialist. The emergency department will also refer you to a specialist when appropriate. This referral assures that you have the opportunity for follow-up care with a specialist. All of these measure are taken in an effort to provide you with optimal care, which includes your follow-up. Under all circumstances we always encourage you to contact your private physician who remains a resource for coordinating your care. When calling for follow-up care, please make the office aware that this follow-up is from your recent emergency room visit. If for any reason you are refused follow-up, please contact the [facility] Emergency Department at and asked to speak to the emergency department charge nurse. Take meds as directed, follow up with your primary care physician, return to ER if symptoms worsen or change. [facility] Primary Care - Women's Health [address] [place] [id number]
[2019-01-13] MEDS: Ondansetron 4 MG Tab.DIS PO ONE (13:09)
[2019-01-13 13:34] VITALS: BP 127/61
== END 2019-01-13 13:33 | disposition home or self-care (01) ==
LOC: MW.ED 12:38
DX: O03.9 Complete or unspecified spontaneous abortion without complication (principal); R11.0 Nausea
CPT/HCPCS: 36415; 85025; 99284; A9270

== ENCOUNTER 2019-11-17 19:36 | Emergency (ER) | payer BC, OTHER ==
--- NOTE | 2019-11-17 19:51 | EDM.PDOC ---
ED HPI GENERAL MEDICAL PROBLEM - General Chief Complaint: Back Pain or Injury Stated Complaint: FALL AND INJURED LOWERED BACK Time Seen by Provider: 11/17/19 19:48 Source of Information: Reports: Patient History Limitations: Reports: No Limitations - History of Present Illness INITIAL COMMENTS - FREE TEXT/NARRATIVE: HISTORY AND PHYSICAL: History of present illness: Patient is a 37-year-old female who presents to the emergency room with complaints of right hip pain after fall. Patient reports that she had tripped over a toy in her home and fallen on her right hip and did hit her head. She denies having any loss of consciousness. States she was able to get up and ambulate although she continues to have some hip pain that radiates into her back. Patient denies any fever, chills, headache, change in vision, syncope or near syncope. Denies any chest pain, back pain, shortness of breath or cough. Denies any abdominal pain, nausea, vomiting, diarrhea, constipation or dysuria. Has not noted any blood in urine or stool. Patient had been eating and drinking appropriately. Patient is 13 weeks , just saw Dr. Yareli Stokes this morning. States she has not had any INSPECTION ENGINEER related concerns or complaints. Denies any abdominal pain, cramping or vaginal bleeding. Review of systems: As per history of present illness and below otherwise all systems reviewed and negative. Past medical history: As per history of present illness and as reviewed below otherwise noncontributory. Surgical history: As per history of present illness and as reviewed below otherwise noncontributory. Social history: See social history for further information Family history: As per history of present illness and as reviewed below otherwise noncontributory. Physical exam: General: Well-developed and well-nourished 29-year-old female. Alert and oriented. Nontoxic-appearing and in no acute distress. HEENT: Nontender scalp and facial bones, normocephalic, pupils equal and reactive bilaterally, negative for conjunctival pallor or scleral icterus, mucous membranes moist, TMs normal bilaterally, throat clear, neck supple, nontender, trachea midline. No drooling or trismus noted. No meningeal signs. No hot potato voice noted. Lungs: Clear to auscultation, breath sounds equal bilaterally, chest nontender. Heart: S1S2, regular rate and rhythm without overt murmur Abdomen: Soft, 13 weeks , nontender. Negative for masses or hepatosplenomegaly. Negative for costovertebral tenderness. Pelvis is stable nontender. C-spine/Back: No pinpoint vertebral tenderness upon palpation. No crepitus, step -offs or obvious deformities. Patient is ambulatory into the emergency room without difficulty or deficit. Able to rock back on heels and walk on toes. Denies any urinary or fecal incontinence. Denies any numbness, tingling or saddle paresthesia. Skin: Intact, warm, dry. No lesions or rashes noted. Extremities: Muscular pain with palpation of the right glutes, moves all extremities per self without difficulty or deficits, negative for cords or calf pain. Neurovascular unremarkable. Neuro: Awake, alert, oriented. Cranial nerves II through XII unremarkable. Cerebellum unremarkable. Motor and sensory unremarkable throughout. Exam nonfocal. Notes: FHT 150's without any pain with palpation to the abdomen. My physical exam is within normal limits. We did discuss the risks of doing x-rays in , she declines moving forward with this at this time. Urine does not show any significant findings. We discussed following up with Yareli Stokes for reevaluation if needed. Supportive care measures were reviewed and discussed. Voices understanding and is agreeable to plan of care. Denies any further questions or concerns at this time. Diagnostics: heart tones Therapeutics: Tylenol Prescription: None Impression: Fall in Right hip pain Plan: 1. Rest and take it easy over the next 24-48 hours. Tylenol as needed for pain management. 2. Follow-up with Yareli Stokes's office as we discussed. 3. Return to the ED as needed and as discussed. Definitive disposition and diagnosis as appropriate pending reevaluation and review of above. lower back area Pain Score (Numeric/FACES): 7 - Related Data Allergies Allergy/AdvReac Type Severity Reaction Status Date / Time No Known Allergies Allergy Verified 11/17/19 19:49 Home Meds: Home Meds Hydrocodone/Acetaminophen [[place] 5-325 Tablet] 1 each PO Q12HR PRN 01/13/19 [ History] Ondansetron [Zofran ODT] 4 mg PO Q6H PRN #12 tab.dis 01/13/19 [Rx] traMADol HCl [Tramadol HCl] 50 mg PO Q6H PRN #16 tablet 01/13/19 [Rx] Past Medical History - Past Health History Medical/Surgical History: Denies Medical/Surgical History HEENT History: Reports: None Cardiovascular History: Reports: None Respiratory History: Reports: None Gastrointestinal History: Reports: GERD Genitourinary History: Reports: None 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: Musculoskeletal History: Reports: None Neurological History: Reports: None Psychiatric History: Reports: None Endocrine/Metabolic History: Reports: Obesity/BMI 30+ Hematologic History: Reports: None Immunologic History: Reports: None Oncologic (Cancer) History: Reports: None Dermatologic History: Reports: None - Infectious Disease History Infectious Disease History: Reports: Herpes Other Infectious Disease History: Herpes - Past Surgical History Female Surgical History: Reports: Section Endocrine Surgical History: Reports: None Dermatological Surgical History: Reports: None Social & Family History - Family History Family Medical History: Noncontributory HEENT: Reports: None - Caffeine Use Caffeine Use: Reports: None ED ROS GENERAL - Review of Systems Review Of Systems: Comprehensive ROS is negative, except as noted in HPI. ED EXAM,LOWER BACK PAIN/INJURY - Physical Exam Exam: See Below (See dictation) Course - Vital Signs Last Recorded V/S: Last Vital Signs Temp 97.5 F 11/17/19 19:49 Pulse 72 11/17/19 19:49 Resp 18 11/17/19 19:49 BP 134/69 11/17/19 19:49 Pulse Ox 98 11/17/19 19:49 - Orders/Labs/Meds Orders: Active Orders 24 hr Category Date Time Status HCG QUALITATIVE,URINE [URCHEM] Stat Lab 11/17/19 19:45 Stop Req UA RFX LINSEY AND CULT IF INDIC [URIN] Stat Lab 11/17/19 19:45 Received Labs: Laboratory Tests 11/17/19 Range/Units 19:45 Urine Color YELLOW Urine Appearance CLEAR Urine pH 7.0 (5.0-8.0) Ur Specific [place] 1.010 (1.001-1.035) Urine Protein NEGATIVE (NEGATIVE) mg/dL Urine Glucose (UA) NEGATIVE (NEGATIVE) mg/dL Urine Ketones NEGATIVE (NEGATIVE) mg/dL Urine Occult Blood NEGATIVE (NEGATIVE) Urine Nitrite NEGATIVE (NEGATIVE) Urine Bilirubin NEGATIVE (NEGATIVE) Urine Urobilinogen 0.2 (<2.0) EU/dL Ur Leukocyte Esterase SMALL H (NEGATIVE) Urine RBC 0-3 (0-2/HPF) Urine WBC 1-5 (0-5/HPF) Ur Epithelial Cells RARE (NONE-FEW) Urine Bacteria FEW (NEGATIVE) Meds: Medications Discontinued Medications Generic Name Dose Route Start Last Admin Trade Name Zoila PRN Reason Stop Dose Admin Acetaminophen 1,000 mg 11/17/19 19:57 11/17/19 20:09 Tylenol Extra Strength PO 11/17/19 19:58 1,000 mg ONETIME ONE Administration Departure - Departure Time of Disposition: 20:15 Disposition: Home, Self-Care 01 Clinical Impression: Right hip pain Fall Qualifiers: Encounter type: initial encounter Qualified Code(s): W19.XXXA - Unspecified fall, initial encounter - Discharge Information Referrals: PCP,None [Primary Care Provider] - Forms: ED Department Discharge Additional Instructions: The following information is given to patients seen in the emergency department who are being discharged to home. This information is to outline your options for follow-up care. We provide all patients seen in our emergency department with a follow-up referral. The need for follow-up, as well as the timing and circumstances, are variable depending upon the specifics of your emergency department visit. If you don't have a primary care physician on staff, we will provide you with a referral. We always advise you to contact your personal physician following an emergency department visit to inform them of the circumstance of the visit and for follow-up with them and/or the need for any referrals to a consulting specialist. The emergency department will also refer you to a specialist when appropriate. This referral assures that you have the opportunity for follow-up care with a specialist. All of these measure are taken in an effort to provide you with optimal care, which includes your follow-up. Under all circumstances we always encourage you to contact your private physician who remains a resource for coordinating your care. When calling for follow-up care, please make the office aware that this follow-up is from your recent emergency room visit. If for any reason you are refused follow-up, please contact the [facility] Emergency Department at and asked to speak to the emergency department charge nurse. [facility] [address] [place] [id number] [facility] [address] [place] [id number] 1. Rest and take it easy over the next 24-48 hours. Tylenol as needed for pain management. 2. Follow-up with Yareli Stokes's office as we discussed. 3. Return to the ED as needed and as discussed. Sepsis Event Note - Focused Exam Vital Signs: Vital Signs Temp Pulse Resp BP Pulse Ox 11/17/19 19:49 97.5 F 72 18 134/69 98 Date Exam was Performed: 11/17/19 Time Exam was Performed: 20:17 - My Orders Last 24 Hours: My Active Orders 11/17/19 19:45 HCG QUALITATIVE,URINE [URCHEM] Stat UA RFX LINSEY AND CULT IF INDIC [URIN] Stat - Assessment/Plan Last 24 Hours: My Active Orders 11/17/19 19:45 HCG QUALITATIVE,URINE [URCHEM] Stat UA RFX LINSEY AND CULT IF INDIC [URIN] Stat
[2019-11-17] MEDS ORDERED: Acetaminophen 500 MG Tab PO ONE (19:57)
[2019-11-17 20:26] VITALS: BP 100/56; PULSE 82
== END 2019-11-17 20:25 | disposition home or self-care (01) ==
LOC: MW.ED 19:36
DX: O99.89 Other specified diseases and conditions complicating pregnancy, childbirth and the puerperium (principal); M25.551 Pain in right hip; O09.511 Supervision of elderly primigravida, first trimester; O99.211 Obesity complicating pregnancy, first trimester; Z3A.13 13 weeks gestation of pregnancy; W18.09XA Striking against other object with subsequent fall, initial encounter
CPT/HCPCS: 81001; 81025; 87086; 99283; A9270

== ENCOUNTER 2020-05-18 05:44 | Inpatient (IN) | payer BC ==
[~2020-05-18 05:44] MED LIST: Citric Acid/Sodium Citrate Solution 30 ML Cup PO ONE; Oxytocin/0.9 % Sodium Chloride 30 UNIT/500 ML BAG IV SCH; Sodium Chloride 0.9% 10 ML SDV IV PRN; Sodium Chloride 0.9% 10 ML Syringe FLUSH PRN; Sodium Chloride 0.9% 2.5 ML Syringe FLUSH PRN; ceFAZolin 2 GM in Premix Bag 1 BAG IV ONE
[2020-05-18] MEDS: Lactated Ringers 1,000 ML IV SCH ×2 (06:50→07:56)
[2020-05-18] MEDS ORDERED: Ondansetron 4 MG/2 ML SDV ONE (07:26)
[2020-05-18] MEDS ORDERED: Morphine PF 10 MG/10 ML SDV ONE (07:26)
--- NOTE | 2020-05-18 07:30 | PCM.PREANE ---
Preanesthetic Assessment - Anesthesia/Transfusion/Family Hx Anesthesia History: No Prior Anesthesia Family History of Anesthesia Reaction: No Transfusion History: No Prior Transfusion(s) - Review of Systems General: No Symptoms Pulmonary: No Symptoms Cardiovascular: No Symptoms Gastrointestinal: No Symptoms Neurological: No Symptoms Other: Reports: None - Physical Assessment NPO Status Date: 05/17/20 Height: 5 ft 1 in Weight: 79.832 kg ASA Class: 2 Airway Class: Mallampati = 2 Dentition: Reports: Normal Dentition ROM/Head Extension: Full Lungs: Clear to Auscultation, Normal Respiratory Effort Cardiovascular: Regular Rate, Regular Rhythm - Lab Values: Laboratory Last Values WBC 8.57 K/uL (4.0-11.0) 05/17/20 09:25 RBC 4.00 M/uL (4.30-5.90) L 05/17/20 09:25 Hgb 11.4 g/dL (12.0-16.0) L 05/17/20 09:25 Hct 35.3 % (36.0-46.0) L 05/17/20 09:25 MCV 88.3 fL (80.0-98.0) 05/17/20 09:25 MCH 28.5 pg (27.0-32.0) 05/17/20 09:25 MCHC 32.3 g/dL (31.0-37.0) 05/17/20 09:25 RDW Std Deviation 46.8 fl (28.0-62.0) 05/17/20 09:25 RDW Coeff of Rhona 14 % (11.0-15.0) 05/17/20 09:25 Plt Count 222 K/uL (150-400) 05/17/20 09:25 MPV 11.20 fL (7.40-12.00) 05/17/20 09:25 Nucleated RBC % 0.0 /100WBC 05/17/20 09:25 Nucleated RBCs # 0 K/uL 05/17/20 09:25 Blood Type A POSITIVE 05/17/20 09:25 Antibody Screen NEGATIVE 05/17/20 09:25 - Allergies Allergies/Adverse Reactions: Allergies Allergy/AdvReac Type Severity Reaction Status Date / Time No Known Allergies Allergy Verified 05/15/20 09: - Blood Blood Available: No - Anesthesia Plan Pre-Op Medication Ordered: None, Other (mag citrate po) - Acknowledgements Anesthesia Type Planned: Spinal Pt an Appropriate Candidate for the Planned Anesthesia: Yes Alternatives and Risks of Anesthesia Discussed w Pt/Guardian: Yes Pt/Guardian Understands and Agrees with Anesthesia Plan: Yes Additional Comments: plan: spinal with intrathecal duramorph PreAnesthesia Questionnaire - Past Health History Medical/Surgical History: Denies Medical/Surgical History HEENT History: Reports: None Cardiovascular History: Reports: None Respiratory History: Reports: None Gastrointestinal History: Reports: GERD Genitourinary History: Reports: None 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: Musculoskeletal History: Reports: None Neurological History: Reports: None Psychiatric History: Reports: None Endocrine/Metabolic History: Reports: Obesity/BMI 30+ Hematologic History: Reports: None Immunologic History: Reports: None Oncologic (Cancer) History: Reports: None Dermatologic History: Reports: None - Infectious Disease History Infectious Disease History: Reports: Herpes Other Infectious Disease History: Herpes - Past Surgical History Head Surgeries/Procedures: Reports: None HEENT Surgical History: Reports: None Cardiovascular Surgical History: Reports: None Respiratory Surgical History: Reports: None GI Surgical History: Reports: None Other Female Surgeries/Procedures: Miscarriage Endocrine Surgical History: Reports: None Neurological Surgical History: Reports: None Musculoskeletal Surgical History: Reports: None Oncologic Surgical History: Reports: None Dermatological Surgical History: Reports: None - SUBSTANCE USE Smoking Status *Q: Never Smoker - HOME MEDS Home Medications: Home Meds Pnv No.95/Ferrous Fum/Folic AC [ Vitamin Tablet] 1 tab PO DAILY 05/15/20 [History] - CURRENT (IN HOUSE) MEDS Current Meds: Current Medications Oxytocin/Sodium Chloride (Oxytocin 30 Unit/500 Ml-Ns) 30 unit in 500 mls @ 250 mls/hr IV TITRATE WING Lactated Ringer's (Ringers, Lactated) 1,000 mls @ 500 mls/hr IV BOLUS WING Last Admin: 05/18/20 06:50 Dose: 999 mls/hr Documented by: Sodium Chloride (Saline Flush) 10 ml FLUSH ASDIRECTED PRN PRN Reason: Keep Vein Open Sodium Chloride (Saline Flush) 2.5 ml FLUSH ASDIRECTED PRN PRN Reason: Keep Vein Open Sodium Chloride (Normal Saline) 10 ml IV ASDIRECTED PRN PRN Reason: IV Use Discontinued Medications Citric Acid/Sodium Citrate (Bicitra Solution) 30 ml PO ONETIME ONE Stop: 05/17/20 08:44 Cefazolin Sodium/Dextrose 2 gm (/ Premix) 50 mls @ 100 mls/hr IV ONETIME ONE Stop: 05/17/20 09:12
[2020-05-18] MEDS ORDERED: fentaNYL 100 MCG/2 ML SDV IVPUSH PRN (07:31)
[2020-05-18] MEDS ORDERED: Acetaminophen/oxyCODONE 325-5 MG Tab PO PRN (07:31)
[2020-05-18] MEDS ORDERED: Nalbuphine 10 MG/1 ML Vial IVPUSH PRN (07:31)
[2020-05-18] MEDS ORDERED: Phenylephrine 1% 10 MG/ML SDV ONE (07:35)
[2020-05-18] MEDS ORDERED: Octyl 2-Cyanoacrylate 1 Tube ONE (07:50)
--- NOTE | 2020-05-18 07:51 | PCM.LDHP ---
L&D History of Present Illness - General Date of Service: 05/18/20 Admit Problem/Dx: Patient Status Order with Admit Dx/Problem 05/17/20 08:43 Patient Status [ADT] Routine Admission Diagnosis/Problem Admission Diagnosis/Problem 05/18/20 07:46 Darlene is a 29 yo that presents today for repeat low transverse section at 39.3 weeks gestation (EDD7/) due to history 1 previous section (breech presentation). A pos, RI, GBS neg. 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 Patient seen in office 1 day ago for nasim-operative clearance. Patient has no questions, comments, or concerns at this time. Operative and blood product consents signed and in chart. NKDA. 05/18/20 07:51 Source of Information: Patient History Limitations: Reports: No Limitations - Related Data Allergies/Adverse Reactions: Allergies Allergy/AdvReac Type Severity Reaction Status Date / Time No Known Allergies Allergy Verified 05/15/20 09:20 Home Medications: Home Meds Pnv No.95/Ferrous Fum/Folic AC [ Vitamin Tablet] 1 tab PO DAILY 05/15/20 [History] Past Medical History - Past Health History Medical/Surgical History: Denies Medical/Surgical History HEENT History: Reports: None Cardiovascular History: Reports: None Respiratory History: Reports: None Gastrointestinal History: Reports: GERD Genitourinary History: Reports: None 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: , Spontaneous , Other (See Below) (History of section x 1 due to breech presentation) : 4 Para: 1 Musculoskeletal History: Reports: None Neurological History: Reports: None Psychiatric History: Reports: None Endocrine/Metabolic History: Reports: Obesity/BMI 30+ 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 Pump 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 Hematologic History: Reports: None Immunologic History: Reports: None Oncologic (Cancer) History: Reports: None Dermatologic History: Reports: None - Infectious Disease History Infectious Disease History: Reports: Herpes Other Infectious Disease History: Herpes - Past Surgical History Head Surgeries/Procedures: Reports: None HEENT Surgical History: Reports: None Cardiovascular Surgical History: Reports: None Respiratory Surgical History: Reports: None GI Surgical History: Reports: None Other Female Surgeries/Procedures: Miscarriage Endocrine Surgical History: Reports: None Neurological Surgical History: Reports: None Musculoskeletal Surgical History: Reports: None Oncologic Surgical History: Reports: None Dermatological Surgical History: Reports: None Social & Family History - Family History Family Medical History: Noncontributory HEENT: Reports: None - Tobacco Use Smoking Status *Q: Never Smoker Second Hand Smoke Exposure: No - Caffeine Use Caffeine Use: Reports: None - Recreational Drug Use Recreational Drug Use: No Drug Use in Last 12 Months: No H&P Review of Systems - Review of Systems: Review Of Systems: Comprehensive ROS is negative, except as noted in HPI. General: Reports: No Symptoms HEENT: Reports: No Symptoms Pulmonary: Reports: No Symptoms Cardiovascular: Reports: No Symptoms Gastrointestinal: Reports: No Symptoms Genitourinary: Reports: No Symptoms Musculoskeletal: Reports: No Symptoms Skin: Reports: No Symptoms Psychiatric: Reports: No Symptoms Neurological: Reports: No Symptoms Hematologic/Lymphatic: Reports: No Symptoms Immunologic: Reports: No Symptoms L&D Exam - Exam Exam: See Below - Vital Signs Weight: 176 lb - OB Specific Fundal Height In cm: 39 Contraction Duration (sec): 100-120 Contraction Frequency (min): Occasional Contraction Intensity: Mild Movement: Active Heart Tones: Present Heart Tones per Min: 135 Heart Rate (FHR) Variability: Moderate (6-25 bmp) Presentation: Vertex - Exam General: Alert, Oriented, Cooperative HEENT: Conjunctiva Clear, EACs Clear, EOMI, Hearing Intact, Mucosa Moist & [place], Normal Nasal Septum, Posterior Pharynx Clear, TMs Clear, PERRLA Neck: Supple, Trachea Midline Lungs: Clear to Auscultation, Normal Respiratory Effort Cardiovascular: Regular Rate, Regular Rhythm GI/Abdominal Exam: Normal Bowel Sounds, Soft, Non-Tender, No Organomegaly, No Distention Rectal Exam: Deferred Genitourinary: Normal external exam Back Exam: Normal Inspection, Full Range of Motion Extremities: Normal Inspection, Normal Range of Motion, Non-Tender, No Pedal Edema, Normal Capillary Refill Skin: Warm, Dry, Intact Neurological: Cranial Nerves Intact, Reflexes Equal Bilateral Psychiatric: Alert, Normal Affect, Normal Mood - Patient Data Lab Results Last 24 hrs: Laboratory Results - last 24 hr 05/17/20 05/17/20 Range/Units 09:25 09:25 WBC 8.57 (4.0-11.0) K/uL RBC 4.00 L (4.30-5.90) M/uL Hgb 11.4 L (12.0-16.0) g/dL Hct 35.3 L (36.0-46.0) % MCV 88.3 (80.0-98.0) fL MCH 28.5 (27.0-32.0) pg MCHC 32.3 (31.0-37.0) g/dL RDW Std Deviation 46.8 (28.0-62.0) fl RDW Coeff of Rhona 14 (11.0-15.0) % Plt Count 222 (150-400) K/uL MPV 11.20 (7.40-12.00) fL Nucleated RBC % 0.0 /100WBC Nucleated RBCs # 0 K/uL Blood Type A POSITIVE Antibody Screen NEGATIVE Result Diagrams: 05/17/20 09:25 - Problem List (1) with 39 completed weeks gestation SNOMED Code(s): 62060016 ICD Code: Z3A.39 - 39 WEEKS GESTATION OF Status: Acute Current Visit: Yes Problem List Initiated/Reviewed/Updated: Yes Orders Last 24hrs: Active Orders 24 hr Category Date Time Status Patient Status [ADT] Routine ADT 05/17/20 08:43 Active Bradycardia-Neuroaxis Duramorp [RC] ROUTINE Care 05/18/20 07:31 Active Hypertension-Neuroaxis Duramor [RC] ROUTINE Care 05/18/20 07:31 Active Hypotension-Neuroaxis Duramorp [RC] ROUTINE Care 05/18/20 07:31 Active Oxygen Therapy [RC] PER UNIT ROUTINE Care 05/18/20 07:31 Active Procedure Site Prep Instruct [RC] ASDIRECTED Care 05/17/20 08:43 Active Up ad Kaylee [RC] ASDIRECTED Care 05/17/20 08:43 Active Verify Patient Consent Obtain [RC] ASDIRECTED Care 05/17/20 08:43 Active Vital Signs [RC] PER UNIT ROUTINE Care 05/17/20 08:43 Active Vital Signs [RC] Q1H Care 05/18/20 07:31 Active RPR (SYPHILIS SERO) W/ RFLX [REF] Routine Lab 05/17/20 09:25 Received Acetaminophen/oxyCODONE [Percocet 325-5 MG] Med 05/18/20 07:31 Active 1 tab PO ONETIME PRN Lactated Ringers [Ringers, Lactated] 1,000 ml Med 05/17/20 08:45 Active IV BOLUS Nalbuphine [Nubain] Med 05/18/20 07:31 Active 2.5 mg IVPUSH Q3H PRN Oxytocin/0.9 % Sodium Chloride [Oxytocin 30 Unit/500 ML Med 05/17/20 08:45 Active -NS] 30 unit in 500 ml IV TITRATE Sodium Chloride 0.9% [Normal Saline] Med 05/17/20 08:43 Active 10 ml IV ASDIRECTED PRN Sodium Chloride 0.9% [Saline Flush] Med 05/17/20 08:43 Active 10 ml FLUSH ASDIRECTED PRN Sodium Chloride 0.9% [Saline Flush] Med 05/17/20 08:43 Active 2.5 ml FLUSH ASDIRECTED PRN fentaNYL [Sublimaze] Med 05/18/20 07:31 Active 50 mcg IVPUSH Q5M PRN AN Neuroaxis Duramorph Precaution Reflex [OM.PC] PER Oth 05/18/20 07:45 Ordered UNIT ROUTINE AN Neuroaxis Duramorph Precaution Reflex [OM.PC] PER Oth 05/19/20 07:45 Ordered UNIT ROUTINE Peripheral IV Insertion Adult [OM.PC] Routine Oth 05/17/20 08:43 Ordered Resuscitation Status Routine Resus Stat 05/17/20 08:43 Ordered Medication Orders Fentanyl (Sublimaze) 50 mcg IVPUSH Q5M PRN PRN Reason: Pain (severe 7-10) Stop: 05/19/20 07:31 Oxytocin/Sodium Chloride (Oxytocin 30 Unit/500 Ml-Ns) 30 unit in 500 mls @ 250 mls/hr IV TITRATE WING Lactated Ringer's (Ringers, Lactated) 1,000 mls @ 500 mls/hr IV BOLUS [facility] Last Admin: 05/18/20 06:50 Dose: 999 mls/hr Documented by: BECCA Nalbuphine HCl (Nubain) 2.5 mg IVPUSH Q3H PRN PRN Reason: Pruritis Stop: 05/19/20 07:31 Oxycodone/Acetaminophen (Percocet 325-5 Mg) 1 tab PO ONETIME PRN PRN Reason: Pain (moderate 4-6) Sodium Chloride (Saline Flush) 10 ml FLUSH ASDIRECTED PRN PRN Reason: Keep Vein Open Sodium Chloride (Saline Flush) 2.5 ml FLUSH ASDIRECTED PRN PRN Reason: Keep Vein Open Sodium Chloride (Normal Saline) 10 ml IV ASDIRECTED PRN PRN Reason: IV Use Assessment/Plan Comment:: Dr. Gonzalez to bedside. Continue with planned repeat section, operative and blood consents signed and in chart. See new orders.
[2020-05-18] MEDS ORDERED: ceFAZolin 1 GM Vial ONE (07:57)
[2020-05-18] MEDS ORDERED: diphenhydrAMINE 50 MG/ML SDV IVPUSH PRN (08:43)
[2020-05-18] MEDS ORDERED: Oxytocin 10 Units/1 ML SDV IM PRN (08:43)
[2020-05-18] MEDS ORDERED: Bisacodyl 10 MG Supp RECTAL PRN (08:43)
[2020-05-18] MEDS ORDERED: Methylergonovine 0.2 MG/1 ML Amp IM PRN (08:43)
[2020-05-18] MEDS ORDERED: Tranexamic Acid 1,000 MG in Sodium Chloride 0.9% 100 ML IV PRN (08:43)
[2020-05-18] MEDS ORDERED: Ondansetron 4 MG/2 ML SDV IVPUSH PRN (08:43)
[2020-05-18] MEDS ORDERED: Lanolin 100% Cream 7 GM Tube TOP PRN (08:43)
[2020-05-18] MEDS ORDERED: Misoprostol 200 MCG Tab RECTAL PRN (08:43)
[2020-05-18] MEDS ORDERED: Lactated Ringers 1,000 ML IV SCH (08:45)
--- NOTE | 2020-05-18 08:47 | PCM.OPNOTE ---
- General Post-Op/Procedure Note Date of Surgery/Procedure: 05/18/20 Operative Procedure(s): Repeat C/section. Pre Op Diagnosis: [id number] Previous c?section. Post-Op Diagnosis: Same Anesthesia Technique: Spinal Primary Surgeon: Matheus Gonzalez [employer] Wafers Etch Operator: Annie Cr EBL in mLs: 700 Complications: None Condition: Good
[2020-05-18] MEDS ORDERED: Oxytocin 10 Units/1 ML SDV ONE (08:55)
[2020-05-18] MEDS: Ketorolac 30 MG/ML SDV IVPUSH SCH ×3 (09:32→21:10)
--- NOTE | 2020-05-18 09:57 | PCM.POSTAN ---
POST ANESTHESIA ASSESSMENT - MENTAL STATUS Mental Status: Alert, Oriented - VITAL SIGNS Vital Signs: See OB Vitals - RESPIRATORY Respiratory Status: Respiratory Rate WNL, Airway Patent, O2 Saturation Stable - CARDIOVASCULAR CV Status: Pulse Rate WNL, Blood Pressure Stable - GASTROINTESTINAL GI Status: No Symptoms - POST OP HYDRATION Hydration Status: Adequate & Stable
--- NOTE | 2020-05-18 10:41 | OR ---
SURGEON: Matheus Gonzalez MD DATE OF PROCEDURE: 05/18/2020 PREOPERATIVE DIAGNOSES: 1. Intrauterine at 39 weeks plus. 2. Previous section. POSTOPERATIVE DIAGNOSES: 1. Intrauterine at 39 weeks plus. 2. Previous section. OPERATION PERFORMED: Repeat low-transverse section. FERRIS WHEEL OPERATOR: Annie Cr, certified nurse resort manager. ANESTHESIA: Spinal. ESTIMATED BLOOD LOSS: 700 mL. FINDINGS: Male fetus, score reported to be 8 and 9. The weight is not available. INDICATION FOR SURGERY: This patient is 29. She had a previous section. She is admitted for elective repeat section. PROCEDURE IN DETAIL: The patient is brought to the OR, properly identified, and after adequate level of spinal anesthesia, with the Rick catheter in the bladder, patient was prepped and draped in sterile fashion as usual. Time-out was taken. Once was that was completed, low-transverse skin incision was done. Annita's facia and rectus fascia were opened in the direction of the incision. The 2 recti muscles were . Peritoneal cavity was entered. Bladder flap was raised in the usual manner and then low-transverse uterine incision extended manually with hand. The fetus was in a footling breech presentation, delivered without any problem and handed to the resuscitating team. The fetus cried immediately. Two nuchal cord was noted. The placenta delivered spontaneous, complete, and intact, and then repair of the lower uterine segment was done with 2-0 Vicryl continuous interlocking in 2 layers. Reperitonealization done with 3-0 Vicryl continuous, and then the peritoneal cavity evacuated completely from all blood and blood clot, and closed with 3-0 Vicryl continuous. The rectus fascia was closed with #1 PDS double strand continuous. Annita's fascia with 3-0 Vicryl continuous. The skin closed with Stratafix in a subcuticular fashion. Instrument and sponge count was correct. The patient tolerated the procedure well, went to recovery room in stable general condition. RACHEL / CARI /[id number]
[2020-05-18] MEDS: Docusate Sodium 100 MG Cap PO SCH (21:10)
[2020-05-19] MEDS: Ketorolac 30 MG/ML SDV IVPUSH SCH ×2 (04:18→10:31)
--- NOTE | 2020-05-19 07:34 | PCM48HPAN ---
Post Anesthesia Note - EVALUATION WITHIN 48HRS OF ANESTHETIC Vital Signs in Normal Range: Yes Patient Participated in Evaluation: Yes Respiratory Function Stable: Yes Airway Patent: Yes Cardiovascular Function Stable: Yes Hydration Status Stable: Yes Pain Control Satisfactory: Yes Nausea and Vomiting Control Satisfactory: Yes Mental Status Recovered: Yes Vital Signs: Last Vital Signs Temp 36.7 C 05/19/20 04:00 Pulse 80 05/19/20 04:00 Resp 16 05/19/20 04:00 BP 100/54 L 05/19/20 04:00 Pulse Ox 99 05/19/20 04:00 - COMMENTS/OBSERVATIONS Free Text/Narrative:: Doing well.
--- NOTE | 2020-05-19 08:50 | PCM.SURGPN ---
- General Info Date of Service: 05/19/20 POD#: 1 Functional Status: Reports: Pain Controlled - Review of Systems General: Reports: No Symptoms HEENT: Reports: No Symptoms Pulmonary: Reports: No Symptoms Cardiovascular: Reports: No Symptoms Gastrointestinal: Reports: No Symptoms Genitourinary: Reports: No Symptoms Musculoskeletal: Reports: No Symptoms Skin: Reports: No Symptoms Neurological: Reports: No Symptoms Psychiatric: Reports: No Symptoms - Patient Data Vitals - Most Recent: Last Vital Signs Temp 36.7 C 05/19/20 04:00 Pulse 91 05/19/20 07:00 Resp 20 05/19/20 07:00 BP 100/54 L 05/19/20 04:00 Pulse Ox 99 05/19/20 07:00 Weight - Most Recent: 79.832 kg I&O - Last 24 Hours: Intake & Output 05/18/20 05/19/20 05/19/20 22:59 06:59 14:59 Output Total 200 Balance -200 Lab Results Last 24 Hrs: Laboratory Results - last 24 hr 05/19/20 Range/Units 05:40 Hgb 10.0 L (12.0-16.0) g/dL Hct 30.3 L (36.0-46.0) % Med Orders - Current: Current Medications Bisacodyl (Dulcolax) 10 mg RECTAL ONETIME PRN PRN Reason: Constipation Diphenhydramine HCl (Benadryl) 25 mg IVPUSH Q6H PRN PRN Reason: Itching or Nausea Last Admin: 05/18/20 12:31 Dose: 25 mg Documented by: Docusate Sodium (Colace) 100 mg PO BID WING Last Admin: 05/18/20 21:10 Dose: 100 mg Documented by: Emollient Ointment (Lansinoh Hpa) 0 gm TOP ASDIRECTED PRN PRN Reason: Sore Nipples Oxytocin/Sodium Chloride (Oxytocin 30 Unit/500 Ml-Ns) 30 unit in 500 mls @ 250 mls/hr IV TITRATE WING Lactated Ringer's (Ringers, Lactated) 1,000 mls @ 500 mls/hr IV BOLUS WING Last Admin: 05/18/20 07:56 Dose: 999 mls/hr Documented by: Lactated Ringer's (Ringers, Lactated) 1,000 mls @ 125 mls/hr IV ASDIRECTED WING Last Admin: 05/18/20 14:52 Dose: 125 mls/hr Documented by: Tranexamic Acid 1,000 mg/ (Sodium Chloride) 110 mls @ 660 mls/hr IV ONETIME PRN PRN Reason: Bleeding Ibuprofen (Motrin) 800 mg PO Q8H PRN PRN Reason: mild pain or fever Methylergonovine Maleate (Methergine) 0.2 mg IM ONETIME PRN PRN Reason: Excessive Vaginal Bleeding Misoprostol (Cytotec) 1,000 mcg RECTAL ONETIME PRN PRN Reason: excessive bleeding Ondansetron HCl (Zofran) 4 mg IVPUSH Q4H PRN PRN Reason: Nausea/Vomiting Last Admin: 05/18/20 11:41 Dose: 4 mg Documented by: Oxycodone/Acetaminophen (Percocet 325-5 Mg) 1 tab PO ONETIME PRN PRN Reason: Pain (moderate 4-6) Oxycodone/Acetaminophen (Percocet 325-5 Mg) 1 tab PO Q4H PRN PRN Reason: Pain (moderate 4-6) Oxycodone/Acetaminophen (Percocet 325-5 Mg) 2 tab PO Q4H PRN PRN Reason: Pain (moderate 4-6) Oxytocin (Pitocin) 10 unit IM ASDIRECTED PRN PRN Reason: Excessive Vaginal Bleeding Sodium Chloride (Saline Flush) 10 ml FLUSH ASDIRECTED PRN PRN Reason: Keep Vein Open Sodium Chloride (Saline Flush) 2.5 ml FLUSH ASDIRECTED PRN PRN Reason: Keep Vein Open Sodium Chloride (Normal Saline) 10 ml IV ASDIRECTED PRN PRN Reason: IV Use Discontinued Medications Cefazolin Sodium (Ancef) Confirm Administered Dose 2 gm .ROUTE .STK-MED ONE Stop: 05/18/20 07:58 Citric Acid/Sodium Citrate (Bicitra Solution) 30 ml PO ONETIME ONE Stop: 05/17/20 08:44 Fentanyl (Sublimaze) 50 mcg IVPUSH Q5M PRN PRN Reason: Pain (severe 7-10) Stop: 05/19/20 07:31 Cefazolin Sodium/Dextrose 2 gm (/ Premix) 50 mls @ 100 mls/hr IV ONETIME ONE Stop: 05/17/20 09:12 Ketorolac Tromethamine (Toradol) 30 mg IVPUSH Q6H [facility] Stop: 05/19/20 08:46 Last Admin: 05/19/20 04:18 Dose: 30 mg Documented by: Morphine Sulfate (Duramorph Pf) Confirm Administered Dose 10 mg .ROUTE .STK-MED ONE Stop: 05/18/20 07:27 Nalbuphine HCl (Nubain) 2.5 mg IVPUSH Q3H PRN PRN Reason: Pruritis Stop: 05/19/20 07:31 Octyl Cyanoacrylate (Dermabond Advance) Confirm Administered Dose 1 applic .ROUTE .STK-MED ONE Stop: 05/18/20 07:51 Ondansetron HCl (Zofran) Confirm Administered Dose 4 mg .ROUTE .STK-MED ONE Stop: 05/18/20 07:27 Oxytocin (Pitocin) Confirm Administered Dose 30 unit .ROUTE .STK-MED ONE Stop: 05/18/20 08:56 Phenylephrine HCl (Austyn-Synephrine) Confirm Administered Dose 10 mg .ROUTE .STK- MED ONE Stop: 05/18/20 07:36 - Exam Wound/Incisions: Healing Well General: Alert, Oriented HEENT: Pupils Equal Neck: Supple Lungs: Clear to Auscultation, Normal Respiratory Effort Cardiovascular: Regular Rate, Regular Rhythm GI/Abdominal Exam: Normal Bowel Sounds, Soft, Non-Tender, No Organomegaly, No Distention, No Abnormal Bruit, No Mass, Pelvis Stable Extremities: Normal Inspection, Normal Range of Motion, Non-Tender, No Pedal Edema, Normal Capillary Refill Skin: Warm, Dry, Intact Neurological: No New Focal Deficit Psy/Mental Status: Alert, Normal Affect, Normal Mood Sepsis Event Note - Evaluation Sepsis Screening Result: No Definite Risk - Focused Exam Vital Signs: Vital Signs Temp Pulse Resp BP Pulse Ox 05/19/20 07:00 91 20 99 05/19/20 06:00 95 16 95 05/19/20 05:00 97 19 97 05/19/20 04:00 36.7 C 80 16 100/54 L 99 05/19/20 02:50 90 16 100 05/19/20 02:00 95 16 95 05/19/20 01:00 86 17 96 05/19/20 00:00 96 18 96 05/18/20 23:00 36.8 C 90 16 108/58 L 99 05/18/20 22:03 101 H 17 97 05/18/20 21:00 97 16 98 Date Exam was Performed: 05/19/20 Time Exam was Performed: 08:49 - Problem List Review Problem List Initiated/Reviewed/Updated: Yes - My Orders Last 24 Hours: Active Orders 24 hr Category Date Time Status Patient Status [ADT] Routine ADT 05/18/20 08:43 Active Ambulate [RC] PER UNIT ROUTINE Care 05/18/20 08:43 Active Antiembolic Devices [RC] PER UNIT ROUTINE Care 05/18/20 08:43 Active Communication Order [RC] PER UNIT ROUTINE Care 05/18/20 08:43 Active Communication Order [RC] PER UNIT ROUTINE Care 05/18/20 08:43 Active Communication Order [RC] Per Unit Routine Care 05/18/20 08:43 Active May Shower [RC] ASDIRECTED Care 05/18/20 08:43 Active RT Incentive Spirometry [RC] Q2HWA Care 05/18/20 08:43 Active Regular Diet [DIET] Diet 05/18/20 Dinner Active Acetaminophen/oxyCODONE [Percocet 325-5 MG] Med 05/18/20 08:43 Active 1 tab PO Q4H PRN Acetaminophen/oxyCODONE [Percocet 325-5 MG] Med 05/18/20 08:43 Active 2 tab PO Q4H PRN Docusate Sodium [Colace] Med 05/18/20 09:00 Active 100 mg PO BID Ibuprofen [Motrin] Med 05/19/20 16:00 Active 800 mg PO Q8H PRN Lactated Ringers [Ringers, Lactated] 1,000 ml Med 05/18/20 08:45 Active IV ASDIRECTED Lanolin [Lansinoh HPA] Med 05/18/20 08:43 Active See Dose Instructions TOP ASDIRECTED PRN Methylergonovine [Methergine] Med 05/18/20 08:43 Active 0.2 mg IM ONETIME PRN Ondansetron [Zofran] Med 05/18/20 08:43 Active 4 mg IVPUSH Q4H PRN Oxytocin [Pitocin] Med 05/18/20 08:43 Active 10 unit IM ASDIRECTED PRN Tranexamic Acid [Cyklokapron] 1,000 mg Med 05/18/20 08:43 Active Sodium Chloride 0.9% [Normal Saline] 100 ml IV ONETIME bisacodyL [Dulcolax] Med 05/18/20 08:43 Active 10 mg RECTAL ONETIME PRN diphenhydrAMINE [Benadryl] Med 05/18/20 08:43 Active 25 mg IVPUSH Q6H PRN miSOPROStoL [Cytotec] Med 05/18/20 08:43 Active 1,000 mcg RECTAL ONETIME PRN AN Neuroaxis Duramorph Precaution Reflex [OM.PC] PER Ot 05/19/20 07:45 Ordered UNIT ROUTINE Assess Lochia [WOMSER] Per Unit Routine Ot 05/18/20 08:43 Ordered Assess Uterine Involution [WOMSER] Per Unit Routine Ot 05/18/20 08:43 Ordered Breast Pump [WOMSER] Per Unit Routine Ot 05/18/20 08:43 Ordered Peripheral IV Discontinue [OM.PC] Routine Ot 05/18/20 08:43 Ordered Sequential Compression Device [OM.PC] Per Unit Routine Ot 05/18/20 08:43 Ordered Medication Orders Bisacodyl (Dulcolax) 10 mg RECTAL ONETIME PRN PRN Reason: Constipation Diphenhydramine HCl (Benadryl) 25 mg IVPUSH Q6H PRN PRN Reason: Itching or Nausea Last Admin: 05/18/20 12:31 Dose: 25 mg Documented by: POOL Docusate Sodium (Colace) 100 mg PO BID [facility] Last Admin: 05/18/20 21:10 Dose: 100 mg Documented by: SKIP Emollient Ointment (Lansinoh Hpa) 0 gm TOP ASDIRECTED PRN PRN Reason: Sore Nipples Oxytocin/Sodium Chloride (Oxytocin 30 Unit/500 Ml-Ns) 30 unit in 500 mls @ 250 mls/hr IV TITRATE [facility] Lactated Ringer's (Ringers, Lactated) 1,000 mls @ 500 mls/hr IV BOLUS [facility] Last Admin: 05/18/20 07:56 Dose: 999 mls/hr Documented by: Infusion: 05/18/20 07:51 Dose: 999 mls/hr Documented by: Admin: 05/18/20 06:50 Dose: 999 mls/hr Documented by: BECCA Lactated Ringer's (Ringers, Lactated) 1,000 mls @ 125 mls/hr IV ASDIRECTED WING Last Admin: 05/18/20 14:52 Dose: 125 mls/hr Documented by: POOL Tranexamic Acid 1,000 mg/ (Sodium Chloride) 110 mls @ 660 mls/hr IV ONETIME PRN PRN Reason: Bleeding Ibuprofen (Motrin) 800 mg PO Q8H PRN PRN Reason: mild pain or fever Methylergonovine Maleate (Methergine) 0.2 mg IM ONETIME PRN PRN Reason: Excessive Vaginal Bleeding Misoprostol (Cytotec) 1,000 mcg RECTAL ONETIME PRN PRN Reason: excessive bleeding Ondansetron HCl (Zofran) 4 mg IVPUSH Q4H PRN PRN Reason: Nausea/Vomiting Last Admin: 05/18/20 11:41 Dose: 4 mg Documented by: POOL Oxycodone/Acetaminophen (Percocet 325-5 Mg) 1 tab PO ONETIME PRN PRN Reason: Pain (moderate 4-6) Oxycodone/Acetaminophen (Percocet 325-5 Mg) 1 tab PO Q4H PRN PRN Reason: Pain (moderate 4-6) Oxycodone/Acetaminophen (Percocet 325-5 Mg) 2 tab PO Q4H PRN PRN Reason: Pain (moderate 4-6) Oxytocin (Pitocin) 10 unit IM ASDIRECTED PRN PRN Reason: Excessive Vaginal Bleeding Sodium Chloride (Saline Flush) 10 ml FLUSH ASDIRECTED PRN PRN Reason: Keep Vein Open Sodium Chloride (Saline Flush) 2.5 ml FLUSH ASDIRECTED PRN PRN Reason: Keep Vein Open Sodium Chloride (Normal Saline) 10 ml IV ASDIRECTED PRN PRN Reason: IV Use - Assessment Assessment (Free Text/Narrative):: S/P c/section doing well - Plan Plan (Free Text/Narrative):: Regular PP care will send home in am.
[2020-05-19] MEDS: Docusate Sodium 100 MG Cap PO SCH ×3 (10:38→21:38)
[2020-05-19] MEDS: Acetaminophen/oxyCODONE 325-5 MG Tab PO PRN ×3 (10:38→19:01)
[2020-05-19] MEDS: Ibuprofen 800 MG Tab PO PRN (22:12)
[2020-05-20] MEDS: Acetaminophen/oxyCODONE 325-5 MG Tab PO PRN ×2 (01:07→06:27)
[2020-05-20] MEDS: Docusate Sodium 100 MG Cap PO SCH (08:34)
[2020-05-20] MEDS: Ibuprofen 800 MG Tab PO PRN (08:34)
--- NOTE | 2020-05-20 09:20 | PCM.DCSUM1 ---
Discharge Summary - Hospital Course Free Text/Narrative:: Discharge home with infant. Follow up in 1 week for postop check and 6 weeks for visit. Diagnosis: Stroke: No Modified Gregory Scale: No Symptoms at All Modified Gregory Scale Score: 0 - Discharge Data Discharge Date: 05/20/20 Discharge Disposition: Home, Self-Care 01 Condition: Good - Referral to Home Health Primary Care Physician: PCP None - Patient Summary/Data Operative Procedure(s) Performed: Repeat C/section. - Patient Instructions Diet: Usual Diet as Tolerated Activity: As Tolerated, No Strenuous Activities, Rest and Relax Today Driving: Do Not Drive Showering/Bathing: May Shower Wound/Incision Care: Keep Operative Site/Wound Site Clean and Dry Notify Provider of: Fever, Increased Pain, Swelling and Redness, Drainage, Nausea and/or Vomiting - Discharge Plan *PRESCRIPTION DRUG MONITORING PROGRAM REVIEWED*: Not Applicable *COPY OF PRESCRIPTION DRUG MONITORING REPORT IN PATIENT [place]: Not Applicable Prescriptions/Med Rec: Ibuprofen [Motrin] 800 mg PO Q8H PRN #90 tablet PRN Reason: mild pain or fever Acetaminophen/oxyCODONE [Percocet 325-5 MG] 1 - 2 tab PO ONETIME PRN #30 tablet PRN Reason: Pain (Moderate 4-6) Home Medications: Home Meds Pnv No.95/Ferrous Fum/Folic AC [ Vitamin Tablet] 1 tab PO DAILY 05/15/20 [History] Acetaminophen/oxyCODONE [Percocet 325-5 MG] 1 - 2 tab PO ONETIME PRN #30 tablet 05/20/20 [Rx] Ibuprofen [Motrin] 800 mg PO Q8H PRN #90 tablet 05/20/20 [Rx] Oxygen Therapy Mode: Room Air Referrals: [facility] [Outside] Matheus Gonzalez MD [Physician] - 05/26/20 3:00 pm Yareli Rosas CNM [Mid-] - 06/29/20 1:30 pm - Discharge Summary/Plan Comment DC Time >30 min.: Yes - General Info Date of Service: 05/20/20 Admission Dx/Problem (Free Text: Patient Status Order with Admit Dx/Problem 05/17/20 08:43 Patient Status [ADT] Routine Admission Diagnosis/Problem Admission Diagnosis/Problem 05/18/20 07:46 [place]ham is a 29 yo that presents today for repeat low transverse section at 39.3 weeks gestation (ED05/22/2020) due to history 1 previous section (breech presentation). A pos, RI, GBS neg. 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 Patient seen in office 1 day ago for nasim-operative clearance. Patient has no questions, comments, or concerns at this time. Operative and blood product consents signed and in chart. NKDA. 05/18/20 07:51 Functional Status: Reports: Pain Controlled, Tolerating Diet, Ambulating, Urinating - Review of Systems General: Reports: No Symptoms HEENT: Reports: No Symptoms Pulmonary: Reports: No Symptoms Cardiovascular: Reports: No Symptoms Gastrointestinal: Reports: No Symptoms Genitourinary: Reports: No Symptoms Musculoskeletal: Reports: No Symptoms Skin: Reports: No Symptoms Neurological: Reports: No Symptoms Psychiatric: Reports: No Symptoms - Patient Data Vitals - Most Recent: Last Vital Signs Temp 37.0 C 05/20/20 07:51 Pulse 89 05/20/20 07:51 Resp 18 05/20/20 07:51 BP 108/66 05/20/20 07:51 Pulse Ox 96 05/20/20 07:51 Weight - Most Recent: 79.832 kg Lab Results - Last 24 hrs: Laboratory Results - last 24 hr 05/17/20 Range/Units 09:25 RPR Non-Reac (Non-Reac) Med Orders - Current: Current Medications Bisacodyl (Dulcolax) 10 mg RECTAL ONETIME PRN PRN Reason: Constipation Diphenhydramine HCl (Benadryl) 25 mg IVPUSH Q6H PRN PRN Reason: Itching or Nausea Last Admin: 05/18/20 12:31 Dose: 25 mg Documented by: Docusate Sodium (Colace) 100 mg PO BID WING Last Admin: 05/20/20 08:34 Dose: 100 mg Documented by: Emollient Ointment (Lansinoh Hpa) 0 gm TOP ASDIRECTED PRN PRN Reason: Sore Nipples Oxytocin/Sodium Chloride (Oxytocin 30 Unit/500 Ml-Ns) 30 unit in 500 mls @ 250 mls/hr IV TITRATE WING Lactated Ringer's (Ringers, Lactated) 1,000 mls @ 500 mls/hr IV BOLUS WING Last Admin: 05/18/20 07:56 Dose: 999 mls/hr Documented by: Lactated Ringer's (Ringers, Lactated) 1,000 mls @ 125 mls/hr IV ASDIRECTED WING Last Admin: 05/18/20 14:52 Dose: 125 mls/hr Documented by: Tranexamic Acid 1,000 mg/ (Sodium Chloride) 110 mls @ 660 mls/hr IV ONETIME PRN PRN Reason: Bleeding Ibuprofen (Motrin) 800 mg PO Q8H PRN PRN Reason: mild pain or fever Last Admin: 05/20/20 08:34 Dose: 800 mg Documented by: Methylergonovine Maleate (Methergine) 0.2 mg IM ONETIME PRN PRN Reason: Excessive Vaginal Bleeding Misoprostol (Cytotec) 1,000 mcg RECTAL ONETIME PRN PRN Reason: excessive bleeding Ondansetron HCl (Zofran) 4 mg IVPUSH Q4H PRN PRN Reason: Nausea/Vomiting Last Admin: 05/18/20 11:41 Dose: 4 mg Documented by: Oxycodone/Acetaminophen (Percocet 325-5 Mg) 1 tab PO ONETIME PRN PRN Reason: Pain (moderate 4-6) Oxycodone/Acetaminophen (Percocet 325-5 Mg) 1 tab PO Q4H PRN PRN Reason: Pain (moderate 4-6) Last Admin: 05/20/20 06:27 Dose: 1 tab Documented by: Oxycodone/Acetaminophen (Percocet 325-5 Mg) 2 tab PO Q4H PRN PRN Reason: Pain (moderate 4-6) Last Admin: 05/19/20 19:01 Dose: 2 tab Documented by: Oxytocin (Pitocin) 10 unit IM ASDIRECTED PRN PRN Reason: Excessive Vaginal Bleeding Sodium Chloride (Saline Flush) 10 ml FLUSH ASDIRECTED PRN PRN Reason: Keep Vein Open Sodium Chloride (Saline Flush) 2.5 ml FLUSH ASDIRECTED PRN PRN Reason: Keep Vein Open Sodium Chloride (Normal Saline) 10 ml IV ASDIRECTED PRN PRN Reason: IV Use Discontinued Medications Cefazolin Sodium (Ancef) Confirm Administered Dose 2 gm .ROUTE .STK-MED ONE Stop: 05/18/20 07:58 Citric Acid/Sodium Citrate (Bicitra Solution) 30 ml PO ONETIME ONE Stop: 05/17/20 08:44 Fentanyl (Sublimaze) 50 mcg IVPUSH Q5M PRN PRN Reason: Pain (severe 7-10) Stop: 05/19/20 07:31 Cefazolin Sodium/Dextrose 2 gm (/ Premix) 50 mls @ 100 mls/hr IV ONETIME ONE Stop: 05/17/20 09:12 Ketorolac Tromethamine (Toradol) 30 mg IVPUSH Q6H [facility] Stop: 05/19/20 08:46 Last Admin: 05/19/20 10:31 Dose: 30 mg Documented by: Morphine Sulfate (Duramorph Pf) Confirm Administered Dose 10 mg .ROUTE .STK-MED ONE Stop: 05/18/20 07:27 Nalbuphine HCl (Nubain) 2.5 mg IVPUSH Q3H PRN PRN Reason: Pruritis Stop: 05/19/20 07:31 Octyl Cyanoacrylate (Dermabond Advance) Confirm Administered Dose 1 applic .ROUTE .STK-MED ONE Stop: 05/18/20 07:51 Ondansetron HCl (Zofran) Confirm Administered Dose 4 mg .ROUTE .STK-MED ONE Stop: 05/18/20 07:27 Oxytocin (Pitocin) Confirm Administered Dose 30 unit .ROUTE .STK-MED ONE Stop: 05/18/20 08:56 Phenylephrine HCl (Austyn-Synephrine) Confirm Administered Dose 10 mg .ROUTE .STK- MED ONE Stop: 05/18/20 07:36 - Exam General: Reports: Alert, Oriented, Cooperative, No Acute Distress Lungs: Reports: Clear to Auscultation, Normal Respiratory Effort, Decreased Breath Sounds Cardiovascular: Reports: Regular Rate, Regular Rhythm, No Murmurs GI/Abdominal Exam: Soft, Pelvis Stable (Female) Exam: Deferred, Vaginal Bleeding Rectal (Female) Exam: Deferred Extremities: Normal Inspection, Normal Range of Motion, No Pedal Edema Skin: Reports: Warm, Dry, Intact Wound/Incisions: Reports: Dressing Dry and Intact Neurological: Reports: No New Focal Deficit, Normal Speech, Normal Tone, Strength Equal Bilateral Psy/Mental Status: Reports: Alert, Normal Affect, Normal Mood
[2020-05-20 12:11] VITALS: BP 114/67; PULSE 86
== END 2020-05-20 14:40 | disposition home or self-care (01) | DRG 540 ==
LOC: MW.OB 05:44
PROVIDERS: ADMIT Obstetrics & Gynecology; ATTEND Obstetrics & Gynecology
PROC: 10D00Z1 Extraction of Products of Conception, Low, Open Approach (ICD-10-PCS; principal; 2020-05-18)
DX: O34.211 Maternal care for low transverse scar from previous cesarean delivery (principal); O99.62 Diseases of the digestive system complicating childbirth; K21.9 Gastro-esophageal reflux disease without esophagitis; O99.214 Obesity complicating childbirth; Z37.0 Single live birth; E66.9 Obesity, unspecified; Z3A.39 39 weeks gestation of pregnancy
CPT/HCPCS: 36415; 51702; 59025; 85014; 85018; 85027; 86592; 86593; 86850; 86900; 86901; 88307; A9270-GY; J0690; J1200; J1885; J2270; J2370; J2405; J2590; J7120